=== PATIENT | male | born 1970 | race Caucasian/White ===

== ENCOUNTER 2016-12-06 12:40 | Emergency (ER) | payer SELFPAY ==
[~2016-12-06] VITALS: Ht 170.2 cm; Wt 133.9 kg
[~2016-12-06 12:40] MED LIST: ALBU8.5H4 IH; CYCL10TA9 PO; DCL250C PO; DICL1TAB PO; DIPH50CA33; DOCU-143 PO; DOXY100C2 PO; GABA300C PO; GBPN100C PO; HYDR-2854 PO; HYDR-3812 PO; HYDR10SY15 PO; HYOS0.1217 PO; LORA10TA7 PO; NAPR-243 PO; NAPR500T3 PO; NAPROXEN; ONDA-41 PO; ONDAN4ODT PO; PNT40TEC PO; PRM25T PO; SULF1TAB35 PO; SULF1TAB38; [UNRECOGNIZED DRUG - OTHER]; antihistamine PO
[2016-12-06] MEDS ORDERED: ASPIRIN 81 MG CHEW (CHILDREN'S ASA) PO ONE (12:45)
[2016-12-06] MEDS ORDERED: RX-NITROGLYCERIN 0.4 MG TAB BTL 25'S SL PRN (12:45)
--- NOTE | 2016-12-06 12:57 | ED Chest Pain ---
General Chief Complaint: Chest Pain Stated Complaint: CHEST PAIN Source: patient Exam Limitations: no limitations History of Present Illness Time seen by provider: 12:55 Initial Comments To ER ambulatory with reports of central and right-sided chest pain. This began at 930 a.m. this morning. He states that he was laying on the couch taking his morning nap when he was awakened by a sudden sharp stabbing sensation in the right side of the chest. He denies shortness of breath or any history of heart disease. Pain is been constant since 930 this morning. Presented prior Timing/Duration: 1-3 hours Severity/Quality: moderate Location: central Activities at Onset: none ASA po CUTTING AND SPLICING SUPERVISOR: No NTG SL CUTTING AND SPLICING SUPERVISOR: No Associated Symptoms: No back pain Allergies and Home Medications Allergies Coded Allergies: No Known Drug Allergies (Unverified , 06/28/15) Home Medications Cyclobenzaprine HCl 10 Mg Tablet, 10 MG PO Q8H, #15 Prescribed by: DAISY BILLINGS on 10/24/15 1756 Docusate Sodium 100 Mg Capsule, 100 MG PO BID, #60 Prescribed by: ROSEMARIE REINA on 06/30/15 1057 Gabapentin 300 Mg Capsule, 300 MG PO HS, (Reported) Hydrocodone/Acetaminophen 1 Each Tablet, 1 TAB PO Q4H PRN, #30 Prescribed by: ROSEMARIE REINA on 06/30/15 1057 Loratadine 10 Mg Tablet, 10 MG PO HS, (Reported) Naproxen 500 Mg Tablet, 500 MG PO BID, #20 Prescribed by: DAISY BILLINGS on 10/24/15 1756 Review of Systems Constitutional: see HPI, No chills EENTM: No Symptoms Reported Respiratory: No Symptoms Reported, Denies Cough, Denies Orthopnea, Denies Shortness of Air, Denies SOA With Exertion, Denies SOA at Rest Cardiovascular: See HPI, Chest Pain Gastrointestinal: See HPI Genitourinary: No Symptoms Reported Musculoskeletal: no symptoms reported Skin: no symptoms reported Psychiatric/Neurological: No Symptoms Reported Endocrine: No Symptoms Reported Past Lnymhpv-Qkyujc-Uitpnp Hx Patient Social History Recent Hopitalizations: No Immunizations Up To Date Tetanus Booster (TDap): Unknown Seasonal Allergies Seasonal Allergies: Yes Surgeries HX Surgeries: Yes Surgeries: Abdominal, Ear Surgery Respiratory Hx Respiratory Disorders: Yes (CPAP) Respiratory Disorders: Sleep Apnea Cardiovascular Hx Cardiac Disorders: No Neurological Hx Neurological Disorders: No Reproductive System Hx Reproductive Disorders: No Sexually Transmitted Disease: No HIV/AIDS: No Genitourinary Hx Genitourinary Disorders: No Gastrointestinal Hx Gastrointestinal Disorders: Yes Gastrointestinal Disorders: Abdominal Hernia Musculoskeletal Hx Musculoskeletal Disorders: Yes Musculoskeletal Disorders: Arthritis, Gout Endocrine Hx Endocrine Disorders: No HEENT HX ENT Disorders: Yes (HX OF CHRONIC EAR INFECTION-HAS HAD TUBES) HEENT Disorders: Chronic Ear Infection Loss of Vision: Denies Hearing Impairment: Hard of Hearing Cancer Hx Cancer: No Psychosocial Hx Psychiatric Problems: No Integumentary HX Skin/Integumentary Disorder: No Blood Transfusions Hx Blood Disorders: No Adverse Reaction to a Blood Tr: No Family Medical History Significant Family History: No Pertinent Family Hx Physical Exam Vital Signs Vital Sign - Last 12Hours 12/06/16 12:54 Temp 98.3 Pulse 69 Resp 29 B/P (MAP) 146/99 Pulse Ox 97 O2 Delivery Room Air Capillary Refill : General Appearance: No Apparent Distress, WD/WN, Obese HEENT: PERRL/EOMI, TMs Normal Neck: Full Range of Motion, Normal Inspection Respiratory: No Accessory Muscle Use, No Respiratory Distress Cardiovascular: Regular Rate, Rhythm, Normal Peripheral Pulses Gastrointestinal: Non Tender, Soft Extremity: Normal Capillary Refill, Normal Inspection Neurologic/Psychiatric: Alert, Oriented x3, No Motor/Sensory Deficits Skin: Normal Color, Warm/Dry, Other (there are erythematous changes to the anterior abdominal wall.) Progress/Results/Core Measures Results/Orders Lab Results Laboratory Tests Test 12/06/16 12:53 Range/Units White Blood Count 6.5 4.3-11.0 10^3/uL Red Blood Count 4.88 4.35-5.85 10^6/uL Hemoglobin 15.0 13.3-17.7 G/DL Hematocrit 45 40-54 % Mean Corpuscular Volume 91 80-99 FL Mean Corpuscular Hemoglobin 31 25-34 PG Mean Corpuscular Hemoglobin Concent 34 32-36 G/DL Red Cell Distribution Width 12.5 10.0-14.5 % Platelet Count 197 130-400 10^3/uL Mean Platelet Volume 10.8 H 7.4-10.4 FL Neutrophils (%) (Auto) 66 42-75 % Lymphocytes (%) (Auto) 22 12-44 % Monocytes (%) (Auto) 10 0-12 % Eosinophils (%) (Auto) 2 0-10 % Basophils (%) (Auto) 1 0-10 % Neutrophils # (Auto) 4.3 1.8-7.8 X 10^3 Lymphocytes # (Auto) 1.4 1.0-4.0 X 10^3 Monocytes # (Auto) 0.7 0.0-1.0 X 10^3 Eosinophils # (Auto) 0.1 0.0-0.3 10^3/uL Basophils # (Auto) 0.0 0.0-0.1 10^3/uL Prothrombin Time 11.7 L 12.2-14.7 SEC INR Comment 0.9 0.8-1.4 Activated Partial Thromboplast Time 29 24-35 SEC Sodium Level 140 135-145 MMOL/L Potassium Level 4.2 3.6-5.0 MMOL/L Chloride Level 103 98-107 MMOL/L Carbon Dioxide Level 29 21-32 MMOL/L Anion Gap 8 5-14 MMOL/L Blood Urea Nitrogen 14 7-18 MG/DL Creatinine 0.94 0.60-1.30 MG/DL Estimat Glomerular Filtration Rate > 60 BUN/Creatinine Ratio 15 0-20 Glucose Level 131 H 70-105 MG/DL Calcium Level 9.8 8.5-10.1 MG/DL Magnesium Level 2.2 1.8-2.4 MG/DL Total Bilirubin 1.2 H 0.1-1.0 MG/DL Aspartate Amino Transf (AST/SGOT) 27 5-34 U/L Alanine Aminotransferase (ALT/SGPT) 36 0-55 U/L Alkaline Phosphatase 59 40-136 U/L Myoglobin 53.2 10.0-92.0 NG/ML Troponin I < 0.30 <0.30 NG/ML Total Protein 7.7 6.4-8.2 GM/DL Albumin 4.0 3.2-4.5 GM/DL My Orders Orders - RAMAN ALLEN MANAGER ELIGIBILITY Cbc With Automated Diff (12/06/16 12:45) Magnesium (12/06/16 12:45) Ekg Tracing (12/06/16 12:45) Cardiac Profile 1 (12/06/16 12:45) Comprehensive Metabolic Panel (12/06/16 12:45) Myoglobin Serum (12/06/16 12:45) Protime With Inr (12/06/16 12:45) Partial Thromboplastin Time (12/06/16 12:45) O2 (12/06/16 12:45) Monitor-Rhythm Ecg Trace Only (12/06/16 12:45) Lipid Panel (12/07/16 06:00) Aspirin Chewable Tablet (Baby Aspirin Ch (12/06/16 12:45) Rx-Nitroglycerin Sl Tabs (Rx-Nitrostat S (12/06/16 12:45) Saline Lock/Iv-Start (12/06/16 12:45) Chest Pa/Lat (2 View) (12/06/16 12:53) Vital Signs/I&O Vital Sign - Last 12Hours 12/06/16 12/06/16 12:54 12:54 Temp 98.3 Pulse 69 Resp 29 B/P (MAP) 146/99 Pulse Ox 97 O2 Delivery Room Air Room Air Departure Impression Impression: Primary Impression: Pleuritic chest pain Disposition: 01 HOME, SELF-CARE Condition: Stable Departure-Patient Inst. Decision time for Depature: 13:36 Referrals: [facility] (PCP/Family) Primary Care Physician Patient Instructions: Chest Pain That Is Not Caused by the Heart (DC) Add. Discharge Instructions: 1. Tylenol and Motrin for pain 2. Return to ER for any concerns 3. All discharge instructions reviewed with patient and/or family. Voiced understanding. RAMAN ALLEN APRN Dec 06, 2016 12:57
[2016-12-06 13:00] LABS: BASOPHILS % (AUTO) 1 % (0-10); EOSINOPHILS # (AUTO) 0.1 10^3/uL (0.0-0.3); EOSINOPHILS % (AUTO) 2 % (0-10); LYMPHOCYTES # (AUTO) 1.4 X 10^3 (1.0-4.0); LYMPHOCYTES % (AUTO) 22 % (12-44); MEAN CORPUSCULAR HEMOGLOBIN 31 PG (25-34); MEAN CORPUSCULAR HGB CONC 34 G/DL (32-36); MEAN CORPUSCULAR VOLUME 91 FL (80-99); MEAN PLATELET VOLUME 10.8 FL (7.4-10.4); MONOCYTES # (AUTO) 0.7 X 10^3 (0.0-1.0); MONOCYTES % (AUTO) 10 % (0-12); NEUTROPHILS # (AUTO) 4.3 X 10^3 (1.8-7.8); NEUTROPHILS % (AUTO) 66 % (42-75); PLATELET COUNT 197 10^3/uL (130-400); RED BLOOD COUNT 4.88 10^6/uL (4.35-5.85); RED CELL DISTRIBUTION WIDTH 12.5 % (10.0-14.5); WHITE BLOOD COUNT 6.5 10^3/uL (4.3-11.0)
[2016-12-06 13:19] LABS: ALANINE AMINOTRANSFERASE 36 U/L (0-55); ANION GAP 8 MMOL/L (5-14); ASPARTATE AMINO TRANSFERASE 27 U/L (5-34); BILIRUBIN,TOTAL 1.2 MG/DL (0.1-1.0); BLOOD UREA NITROGEN 14 MG/DL (7-18); BUN/CREATININE RATIO 15 (0-20); CALCIUM 9.8 MG/DL (8.5-10.1); CARBON DIOXIDE 29 MMOL/L (21-32); CHLORIDE 103 MMOL/L (98-107); CREATININE SERUM 0.94 MG/DL (0.60-1.30); GFR ESTIMATED > 60; GLUCOSE 131 MG/DL (70-105); HEMOLYSIS 9 (-100-29); LIPEMIA 5 (-100-49); MAGNESIUM 2.2 MG/DL (1.8-2.4); POTASSIUM 4.2 MMOL/L (3.6-5.0); SODIUM 140 MMOL/L (135-145); TOTAL PROTEIN 7.7 GM/DL (6.4-8.2)
[2016-12-06 13:20] LABS: INR 0.9 (0.8-1.4); PROTHROMBIN TIME PATIENT 11.7 SEC (12.2-14.7)
[2016-12-06 13:26] LABS: MYOGLOBIN SERUM 53.2 NG/ML (10.0-92.0)
--- NOTE | 2016-12-06 13:27 | Diagnostic Imaging Report ---
PA and lateral views of chest. INDICATION: Chest pain. FINDINGS: The lungs demonstrate minimal left basilar atelectasis. The heart size is normal. No effusion or pneumothorax. The mediastinum and sobia appear unremarkable. IMPRESSION: Minimal left basilar atelectasis. Dictated by: Dictated on workstation # [id number]
[2016-12-06 13:48] VITALS: BP 146/99
--- OUTSIDE RECORDS SUMMARY | 2016-12-10 13:46 | XMS REPORT ---
Author Author ANA RIVER Organization [employer] Address Unknown Phone Unavailable Care Team Providers Care Occupational Safety And Health Manager Name Role Phone ANA RIVER CP Unavailable Allergies, Adverse Reactions, Alerts Substance Reaction Event Type N.K.D.A. Info Not Available Non Drug Allergy Problems Problem Type Condition Code Onset Dates Condition Status Problem Unspecified hereditary and idiopathic peripheral neuropathy 356.9 Active Problem Unspecified tinnitus 388.30 Active Problem Abdominal pain, epigastric 789.06 Active Assessment Sinusitis, unspecified chronicity, unspecified location J32.9 Active Problem Pain in joint, site unspecified 719.40 Active Problem Acute sinusitis, unspecified 461.9 Active Problem Dysfunction of Eustachian tube 381.81 Active Problem Acute bronchitis 466.0 Active Problem Impacted cerumen 380.4 Active Problem Acute pharyngitis 462 Active Problem Other abnormal glucose 790.29 Active Medications Medication Code System Code Instructions Start Date End Date Status Dosage Levaquin [facility] [address]-32 500 MG Orally Once a day Mar 14, 2016 Mar 24, 2016 1 tablet Cetirizine HCl [facility] [address]-81 10 mg Orally Once a day January 04, 2016 Apr 03, 2016 1 tablet Naproxen [facility] [address]-80 500 MG Orally every 12 hrs 1 tablet as needed Procedures Procedure Coding System Code Date Office Visit, Est Pt., Level 3 CPT-4 64476 Mar 14, 2016 Vital Signs Date/Time: Mar 14, 2016 Cardiac Monitoring Heart Rate 76 bpm Weight 282 lbs Height 67 in BMI 44.16 Index Blood Pressure Diastolic 80 mmHg Blood Pressure Systolic 120 mmHg Results No Known Results Summary Purpose [employer] Submission
--- OUTSIDE RECORDS SUMMARY | 2016-12-10 13:46 | XMS REPORT | Continuity of Care Document ---
Author Author [facility] Address Unknown Phone Unavailable Allergies Active Description Code Type Severity Reaction Onset Reported/Identified Relationship to Patient Clinical Status Yes NKANo Known Allergies NKA Miscellaneous Allergy Mild N/A 10/01/2009 Yes No Known Drug Allergies [id number] Drug Allergy Unknown N/ A 06/28/2015 Medications Problems Date Dx Coded Attending Type Code Diagnosis Diagnosed By 06/24/2009 465.9 UPPER RESPIRATORY INFECTION 06/24/2009 465.9 UPPER RESPIRATORY INFECTION 06/24/2009 465.9 UPPER RESPIRATORY INFECTION 06/24/2009 465.9 UPPER RESPIRATORY INFECTION 06/24/2009 465.9 UPPER RESPIRATORY INFECTION 06/24/2009 PARAMJIT FRY DO 465.9 UPPER RESPIRATORY INFECTION 06/24/2009 JSOE CASTRO APRN 465.9 UPPER RESPIRATORY INFECTION 06/24/2009 LUIS TERRY DDS 465.9 UPPER RESPIRATORY INFECTION 06/24/2009 CHACHO CROWE MD 465.9 UPPER RESPIRATORY INFECTION 06/24/2009 VERONICA LOZANO APRN 465.9 UPPER RESPIRATORY INFECTION 07/26/2009 382.00 OTITIS MEDIA ACUTE WITHOUT SPONTANEOUS RUPTURE EARDRUM 07/26/2009 382.00 OTITIS MEDIA ACUTE WITHOUT SPONTANEOUS RUPTURE EARDRUM 07/26/2009 382.00 OTITIS MEDIA ACUTE WITHOUT SPONTANEOUS RUPTURE EARDRUM 07/26/2009 382.00 OTITIS MEDIA ACUTE WITHOUT SPONTANEOUS RUPTURE EARDRUM 07/26/2009 382.00 OTITIS MEDIA ACUTE WITHOUT SPONTANEOUS RUPTURE EARDRUM 07/26/2009 PARAMJIT FRY DO 382.00 OTITIS MEDIA ACUTE WITHOUT SPONTANEOUS RUPTURE EARDRUM 07/26/2009 JOSE CASTRO APRN 382.00 OTITIS MEDIA ACUTE WITHOUT SPONTANEOUS RUPTURE EARDRUM 07/26/2009 LUIS TERRY DDS 382.00 OTITIS MEDIA ACUTE WITHOUT SPONTANEOUS RUPTURE EARDRUM 07/26/2009 CHACHO CROWE MD 382.00 OTITIS MEDIA ACUTE WITHOUT SPONTANEOUS RUPTURE EARDRUM 07/26/2009 VERONICA LOZANO APRN 382.00 OTITIS MEDIA ACUTE WITHOUT SPONTANEOUS RUPTURE EARDRUM 09/13/2009 327.23 SLEEP APNEA (ADULT) (PEDIATRIC) 09/13/2009 535.50 GASTRITIS UNSPEC 09/13/2009 327.23 SLEEP APNEA (ADULT) (PEDIATRIC) 09/13/2009 535.50 GASTRITIS UNSPEC 09/13/2009 327.23 SLEEP APNEA (ADULT) (PEDIATRIC) 09/13/2009 535.50 GASTRITIS UNSPEC 09/13/2009 327.23 SLEEP APNEA (ADULT) (PEDIATRIC) 09/13/2009 535.50 GASTRITIS UNSPEC 09/13/2009 327.23 SLEEP APNEA (ADULT) (PEDIATRIC) 09/13/2009 535.50 GASTRITIS UNSPEC 09/13/2009 PARAMJIT FRY DO 327.23 SLEEP APNEA (ADULT) (PEDIATRIC) 09/13/2009 PARAMJIT FRY DO 535.50 GASTRITIS UNSPEC 09/13/2009 JOSE CASTRO APRN 327.23 SLEEP APNEA (ADULT) (PEDIATRIC) 09/13/2009 JOSE CASTRO APRN 535.50 GASTRITIS UNSPEC 09/13/2009 LUIS TERRY DDS 327.23 SLEEP APNEA (ADULT) (PEDIATRIC) 09/13/2009 LUIS TERRY DDS 535.50 GASTRITIS UNSPEC 09/13/2009 CHACHO CROWE MD 327.23 SLEEP APNEA (ADULT) (PEDIATRIC) 09/13/2009 CHACHO CROWE MD 535.50 GASTRITIS UNSPEC 09/13/2009 VERONICA LOZANO APRN R 327.23 SLEEP APNEA (ADULT) (PEDIATRIC) 09/13/2009 VERONICA LOZANO APRN R 535.50 GASTRITIS UNSPEC 09/30/2009 682.9 CELLULITIS AND ABSCESS OF UNSPECIFIED SITES 09/30/2009 682.9 CELLULITIS AND ABSCESS OF UNSPECIFIED SITES 09/30/2009 682.9 CELLULITIS AND ABSCESS OF UNSPECIFIED SITES 09/30/2009 682.9 CELLULITIS AND ABSCESS OF UNSPECIFIED SITES 09/30/2009 682.9 CELLULITIS AND ABSCESS OF UNSPECIFIED SITES 09/30/2009 PARAMJIT FRY DO 682.9 CELLULITIS AND ABSCESS OF UNSPECIFIED SITES 09/30/2009 JOSE CASTRO APRN 682.9 CELLULITIS AND ABSCESS OF UNSPECIFIED SITES 09/30/2009 LUIS TERRY DDS 682.9 CELLULITIS AND ABSCESS OF UNSPECIFIED SITES 09/30/2009 CHACHO CROWE MD 682.9 CELLULITIS AND ABSCESS OF UNSPECIFIED SITES 09/30/2009 VERONICA LOZANO APRN 682.9 CELLULITIS AND ABSCESS OF UNSPECIFIED SITES 05/26/2010 300.00 ANXIETY UNSPEC 05/26/2010 401.1 HYPERTENSION, BENIGN ESSENTIAL 05/26/2010 300.00 ANXIETY UNSPEC 05/26/2010 401.1 HYPERTENSION, BENIGN ESSENTIAL 05/26/2010 300.00 ANXIETY UNSPEC 05/26/2010 401.1 HYPERTENSION, BENIGN ESSENTIAL 05/26/2010 300.00 ANXIETY UNSPEC 05/26/2010 401.1 HYPERTENSION, BENIGN ESSENTIAL 05/26/2010 300.00 ANXIETY UNSPEC 05/26/2010 401.1 HYPERTENSION, BENIGN ESSENTIAL 05/26/2010 FRY DO, PARAMJIT K 300.00 ANXIETY UNSPEC 05/26/2010 FRY DO, PARAMJIT K 401.1 HYPERTENSION, BENIGN ESSENTIAL 05/26/2010 JOSE CASTRO APRN 300.00 ANXIETY UNSPEC 05/26/2010 JOSE CASTRO APRN 401.1 HYPERTENSION, BENIGN ESSENTIAL 05/26/2010 LUIS TERRY DDS 300.00 ANXIETY UNSPEC 05/26/2010 HARRISON HAWKINS, LUIS 401.1 HYPERTENSION, BENIGN ESSENTIAL 05/26/2010 CHACHO CROWE MD 300.00 ANXIETY UNSPEC 05/26/2010 CHACHO CROWE MD 401.1 HYPERTENSION, BENIGN ESSENTIAL 05/26/2010 VERONICA LOZANO APRN R 300.00 ANXIETY UNSPEC 05/26/2010 VERONICA LOZANO APRN R 401.1 HYPERTENSION, BENIGN ESSENTIAL 06/26/2010 789.01 ABDOMINAL PAIN RIGHT UPPER QUADRANT 06/26/2010 789.01 ABDOMINAL PAIN RIGHT UPPER QUADRANT 06/26/2010 789.01 ABDOMINAL PAIN RIGHT UPPER QUADRANT 06/26/2010 789.01 ABDOMINAL PAIN RIGHT UPPER QUADRANT 06/26/2010 789.01 ABDOMINAL PAIN RIGHT UPPER QUADRANT 06/26/2010 GALDINO FRY DOA K 789.01 ABDOMINAL PAIN RIGHT UPPER QUADRANT 06/26/2010 JOSE CASTRO APRN 789.01 ABDOMINAL PAIN RIGHT UPPER QUADRANT 06/26/2010 LUIS TERRY DDS 789.01 ABDOMINAL PAIN RIGHT UPPER QUADRANT 06/26/2010 CHACHO CROWE MD 789.01 ABDOMINAL PAIN RIGHT UPPER QUADRANT 06/26/2010 VERONICA LOZANO APRN R 789.01 ABDOMINAL PAIN RIGHT UPPER QUADRANT 12/25/2010 381.01 OTITIS MEDIA, ACUTE SEROUS 12/25/2010 386.10 VERTIGO, PERIPHERAL UNSPECIFIED 12/25/2010 381.01 OTITIS MEDIA, ACUTE SEROUS 12/25/2010 386.10 VERTIGO, PERIPHERAL UNSPECIFIED 12/25/2010 381.01 OTITIS MEDIA, ACUTE SEROUS 12/25/2010 386.10 VERTIGO, PERIPHERAL UNSPECIFIED 12/25/2010 381.01 OTITIS MEDIA, ACUTE SEROUS 12/25/2010 386.10 VERTIGO, PERIPHERAL UNSPECIFIED 12/25/2010 381.01 OTITIS MEDIA, ACUTE SEROUS 12/25/2010 386.10 VERTIGO, PERIPHERAL UNSPECIFIED 12/25/2010 FRY PARAMJIT LINCOLN K 381.01 OTITIS MEDIA, ACUTE SEROUS 12/25/2010 FRY GALDINO LINCOLNA K 386.10 VERTIGO, PERIPHERAL UNSPECIFIED 12/25/2010 JOSE CASTRO APRN 381.01 OTITIS MEDIA, ACUTE SEROUS 12/25/2010 JOSE CASTRO APRN 386.10 VERTIGO, PERIPHERAL UNSPECIFIED 12/25/2010 HARRISON FALCONS, LUIS 381.01 OTITIS MEDIA, ACUTE SEROUS 12/25/2010 TERRY TERRIES, LUIS 386.10 VERTIGO, PERIPHERAL UNSPECIFIED 12/25/2010 CHACHO CROWE MD 381.01 OTITIS MEDIA, ACUTE SEROUS 12/25/2010 CHACHO CROWE MD 386.10 VERTIGO, PERIPHERAL UNSPECIFIED 12/25/2010 BLAKE VELASCO VERONICA R 381.01 OTITIS MEDIA, ACUTE SEROUS 12/25/2010 BLAKE VELASCO, VERONICA R 386.10 VERTIGO, PERIPHERAL UNSPECIFIED 09/07/2011 466.0 BRONCHITIS, ACUTE 09/07/2011 466.0 BRONCHITIS, ACUTE 09/07/2011 466.0 BRONCHITIS, ACUTE 09/07/2011 466.0 BRONCHITIS, ACUTE 09/07/2011 466.0 BRONCHITIS, ACUTE 09/07/2011 PARAMJIT FRY DO K 466.0 BRONCHITIS, ACUTE 09/07/2011 JOSE CASTRO APRN 466.0 BRONCHITIS, ACUTE 09/07/2011 LUIS TERRY DDS 466.0 BRONCHITIS, ACUTE 09/07/2011 CHACHO CROWE MD 466.0 BRONCHITIS, ACUTE 09/07/2011 BLAKE VELASCO VERONICA R 466.0 BRONCHITIS, ACUTE 09/13/2011 Ot 466.0 ACUTE BRONCHITIS 09/13/2011 Ot 786.2 COUGH 10/10/2011 Ot 789.01 ABDOMINAL PAIN, RIGHT UPPER QUADRANT 01/30/2012 Ot 327.23 OBSTRUCTIVE SLEEP APNEA (ADULT) (PEDIATR 04/10/2012 380.4 CERUMEN IMPACTION 04/10/2012 388.30 TINNITUS UNSPECIFIED 04/10/2012 380.4 CERUMEN IMPACTION 04/10/2012 388.30 TINNITUS UNSPECIFIED 04/10/2012 380.4 CERUMEN IMPACTION 04/10/2012 388.30 TINNITUS UNSPECIFIED 04/10/2012 380.4 CERUMEN IMPACTION 04/10/2012 388.30 TINNITUS UNSPECIFIED 04/10/2012 380.4 CERUMEN IMPACTION 04/10/2012 388.30 TINNITUS UNSPECIFIED 04/10/2012 PARAMJIT FRY DO 380.4 CERUMEN IMPACTION 04/10/2012 PARAMJIT FRY DO 388.30 TINNITUS UNSPECIFIED 04/10/2012 JOSE CASTRO APRN 380.4 CERUMEN IMPACTION 04/10/2012 JOSE CASTRO APRN 388.30 TINNITUS UNSPECIFIED 04/10/2012 LUIS TERRY DDS 380.4 CERUMEN IMPACTION 04/10/2012 LUIS TERRY DDS 388.30 TINNITUS UNSPECIFIED 04/10/2012 CHACHO CROWE MD 380.4 CERUMEN IMPACTION 04/10/2012 CHACHO CROWE MD 388.30 TINNITUS UNSPECIFIED 04/10/2012 VERONICA LOZANO APRN 380.4 CERUMEN IMPACTION 04/10/2012 VERONICA LOZANO APRN 388.30 TINNITUS UNSPECIFIED 07/18/2012 381.81 EUSTACHIAN TUBE DYSFUNCTION 07/18/2012 719.40 ARTHRAIGIA UNSPEC 07/18/2012 381.81 EUSTACHIAN TUBE DYSFUNCTION 07/18/2012 719.40 ARTHRAIGIA UNSPEC 07/18/2012 381.81 EUSTACHIAN TUBE DYSFUNCTION 07/18/2012 719.40 ARTHRAIGIA UNSPEC 07/18/2012 381.81 EUSTACHIAN TUBE DYSFUNCTION 07/18/2012 719.40 ARTHRAIGIA UNSPEC 07/18/2012 381.81 EUSTACHIAN TUBE DYSFUNCTION 07/18/2012 719.40 ARTHRAIGIA UNSPEC 07/18/2012 PARAMJIT FRY DO 381.81 EUSTACHIAN TUBE DYSFUNCTION 07/18/2012 PARAMJIT FRY DO K 719.40 ARTHRAIGIA UNSPEC 07/18/2012 JOSE CASTRO APRN 381.81 EUSTACHIAN TUBE DYSFUNCTION 07/18/2012 JOSE CASTRO APRN 719.40 ARTHRAIGIA UNSPEC 07/18/2012 HARRISON FALCONS, LUIS 381.81 EUSTACHIAN TUBE DYSFUNCTION 07/18/2012 HARRISON FALCONS, LUIS 719.40 ARTHRAIGIA UNSPEC 07/18/2012 CHACHO CROWE MD 381.81 EUSTACHIAN TUBE DYSFUNCTION 07/18/2012 CHACHO CROWE MD 719.40 ARTHRAIGIA UNSPEC 07/18/2012 VERONICA LOZANO APRN R 381.81 EUSTACHIAN TUBE DYSFUNCTION 07/18/2012 VERONICA LOZANO APRN 719.40 ARTHRAIGIA UNSPEC 09/05/2012 790.29 HYPERGLYCEMIA 09/05/2012 790.29 HYPERGLYCEMIA 09/05/2012 790.29 HYPERGLYCEMIA 09/05/2012 PARAMJIT FRY DO K 790.29 HYPERGLYCEMIA 09/05/2012 JOSE CASTRO APRN 790.29 HYPERGLYCEMIA 09/05/2012 HARRISON HAWKINS, LUIS 790.29 HYPERGLYCEMIA 09/05/2012 CHACHO CROWE MD 790.29 HYPERGLYCEMIA 09/05/2012 VERONICA LOZANO APRN R 790.29 HYPERGLYCEMIA 10/13/2012 356.9 NEUROPATHY 10/13/2012 356.9 NEUROPATHY 10/13/2012 PARAMJIT FRY DO K 356.9 NEUROPATHY 10/13/2012 JOSE CASTRO APRN 356.9 NEUROPATHY 10/13/2012 HARRISON HAWKINS, LUIS 356.9 NEUROPATHY 10/13/2012 CHACHO CROWE MD 356.9 NEUROPATHY 10/13/2012 VERONICA LOZANO APRN R 356.9 NEUROPATHY 01/15/2013 JANET CALLOWAY MD Ot 923.20 CONTUSION OF HAND(S) 01/15/2013 JANET CALLOWAY MD Ot 959.4 HAND INJURY NOS 01/15/2013 JANET CALLOWAY MD Ot E000.8 OTHER EXTERNAL CAUSE STATUS 01/15/2013 JANET CALLOWAY MD Ot E849.0 ACCIDENT IN HOME 01/15/2013 JANET CALLOWAY MD Ot E888.1 FALL STRIKING OBJECT NEC 02/02/2013 RIZWAN CHEEMA, ARIE Mancia Ot 530.11 REFLUX ESOPHAGITIS 04/08/2013 DAISY BILLINGS DO Ot 571.8 CHRONIC LIVER DIS NEC 04/08/2013 DAISY BILLINGS DO Ot 789.01 ABDOMINAL PAIN, RIGHT UPPER QUADRANT 04/10/2013 RIZWAN CHEEMA, ARIE Mancia Ot 571.8 CHRONIC LIVER DIS NEC 04/10/2013 RIZWAN CHEEMA, ARIE Mancia Ot 789.02 ABDOMINAL PAIN, LEFT UPPER QUADRANT 04/13/2013 PARAMJIT FRY DO 789.06 ABDOMINAL PAIN EPIGASTRIC 04/13/2013 JOSE CASTRO APRN 789.06 ABDOMINAL PAIN EPIGASTRIC 04/13/2013 LUIS TERRY DDS 789.06 ABDOMINAL PAIN EPIGASTRIC 04/13/2013 CHACHO CROWE MD 789.06 ABDOMINAL PAIN EPIGASTRIC 04/13/2013 BLAKE VELASCO, VERONICA Muñoz 789.06 ABDOMINAL PAIN EPIGASTRIC 02/25/2014 CHACHO CROWE MD 461.9 SINUSITIS ACUTE 02/25/2014 CHACHO CROWE MD 46Leodan ACUTE PHARYNGITIS 02/25/2014 VERONICA LOZANO APRN R 461.9 SINUSITIS ACUTE 02/25/2014 VERONICA LOZANO APRN 462 ACUTE PHARYNGITIS 09/21/2014 VERONICA LOZANO APRN 388.70 OTALGIA UNSPECIFIED 06/20/2015 Ot 789.01 06/20/2015 Ot 789.01 06/20/2015 LAZARA NARANJO Ot 789.01 06/20/2015 RAMAN ALLEN APRN Ot K42.9 UMBILICAL HERNIA WITHOUT OBSTRUCTION OR 06/22/2015 Ot 789.01 06/22/2015 Ot 789.01 06/22/2015 LAZARA NARANJO Ot 789.01 07/08/2015 ROSEMARIE REINA DO Ot K42.9 10/24/2015 DAISY BILLINGS DO Ot 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, CERVICOTHORACIC REGIO 10/24/2015 DAISY BILLINGS DO Ot M47.812 SPONDYLOSIS W/O MYELOPATHY OR RADICULOPA 10/24/2015 DAISY BILLINGS DO Ot R93.3 ABNORMAL FINDINGS ON DX IMAGING OF PRT D 10/24/2015 DAISY BILLINGS DO Ot S16.1XXA STRAIN OF MUSCLE, FASCIA AND TENDON AT N 10/24/2015 DAISY BILLINGS DO Ot S29.012A STRAIN OF MUSCLE AND TENDON OF BACK WALL 10/24/2015 DAISY BILLINGS DO Ot S39.012A STRAIN OF MUSCLE, FASCIA AND TENDON OF L 10/24/2015 DAISY BILLINGS DO Ot V53.5XXA TREATING PLANT PUMPER OF PK-UP/VAN INJ PK-UP TRUCK, PK- 10/24/2015 DAISY BILLINGS DO Ot Y92.414 LOCAL RESIDENTIAL OR BUSINESS STREET 10/24/2015 DAISY BILLINGS DO Ot Y99.8 OTHER EXTERNAL CAUSE STATUS 10/25/2015 DAISY BILLINGS DO Ot 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, CERVICOTHORACIC REGIO 10/25/2015 DAISY BILLINGS DO Ot M47.812 SPONDYLOSIS W/O MYELOPATHY OR RADICULOPA 10/25/2015 DAISY BILLINGS DO Ot R93.3 ABNORMAL FINDINGS ON DX IMAGING OF PRT D 10/25/2015 DAISY BILLINGS DO Ot S16.1XXA STRAIN OF MUSCLE, FASCIA AND TENDON AT N 10/25/2015 DAISY BILLINGS DO Ot S29.012A STRAIN OF MUSCLE AND TENDON OF BACK WALL 10/25/2015 DAISY BILLINGS DO Ot S39.012A STRAIN OF MUSCLE, FASCIA AND TENDON OF L 10/25/2015 DAISY BILLINGS DO Ot V53.5XXA TREATING PLANT PUMPER OF PK-UP/VAN INJ PK-UP TRUCK, PK- 10/25/2015 DAISY BILLINGS DO Ot Y92.[address] OR BUSINESS [address]REET 10/25/2015 DAISY BILLINGS DO Ot Y99.8 OTHER EXTERNAL CAUSE STATUS 11/07/2015 Ot 789.01 ABDOMINAL PAIN, RIGHT UPPER QUADRANT 11/07/2015 Ot 789.01 ABDOMINAL PAIN, RIGHT UPPER QUADRANT 11/07/2015 LAZARA NARANJO Ot 789.01 ABDOMINAL PAIN, RIGHT UPPER QUADRANT 11/07/2015 ROSEMARIE REINA DO Ot K42.9 UMBILICAL HERNIA WITHOUT OBSTRUCTION OR 11/07/2015 ROSEMARIE REINA DO Ot K42.9 UMBILICAL HERNIA WITHOUT OBSTRUCTION OR 11/07/2015 ROSEMARIE REINA DO Ot Z01.812 ENCOUNTER FOR PREPROCEDURAL LABORATORY E 11/07/2015 ROSEMARIE REINA DO Ot Z11.2 ENCOUNTER FOR SCREENING FOR OTHER BACTER 01/03/2016 Ot 789.01 ABDOMINAL PAIN, RIGHT UPPER QUADRANT 01/03/2016 LAZARA NARANJO RESISTOR WINDER Ot 789.01 ABDOMINAL PAIN, RIGHT UPPER QUADRANT 01/03/2016 ROSEMARIE REINA DO Ot K42.9 UMBILICAL HERNIA WITHOUT OBSTRUCTION OR 01/03/2016 REINA ROSEMARIE LINCOLN Ot K42.9 UMBILICAL HERNIA WITHOUT OBSTRUCTION OR 01/03/2016 ROSEMARIE REINA DO Ot Z01.812 ENCOUNTER FOR PREPROCEDURAL LABORATORY E 01/03/2016 ROSEAMRIE REINA DO Ot Z11.2 ENCOUNTER FOR SCREENING FOR OTHER BACTER 01/03/2016 RAMAN ALLEN CATTLE MANAGER Ot H20.00 UNSPECIFIED ACUTE AND SUBACUTE IRIDOCYCL 01/04/2016 RAMAN ALLEN CATTLE MANAGER Ot H20.00 UNSPECIFIED ACUTE AND SUBACUTE IRIDOCYCL 01/05/2016 RAMAN ALLEN CATTLE MANAGER Ot H20.00 UNSPECIFIED ACUTE AND SUBACUTE IRIDOCYCL 01/09/2016 ARMAN ALLEN CATTLE MANAGER Ot H20.00 UNSPECIFIED ACUTE AND SUBACUTE IRIDOCYCL 02/29/2016 Ot 789.01 ABDOMINAL PAIN, RIGHT UPPER QUADRANT 02/29/2016 LAZARA NARANJO RESISTOR WINDER Ot 789.01 ABDOMINAL PAIN, RIGHT UPPER QUADRANT 02/29/2016 ROSEMARIE REINA DO Ot K42.9 UMBILICAL HERNIA WITHOUT OBSTRUCTION OR 02/29/2016 REINA ROSEMARIE LINCOLN Ot K42.9 UMBILICAL HERNIA WITHOUT OBSTRUCTION OR 02/29/2016 ROSEMARIE REINA DO Ot Z01.812 ENCOUNTER FOR PREPROCEDURAL LABORATORY E 02/29/2016 ROSEMARIE REINA DO Ot Z11.2 ENCOUNTER FOR SCREENING FOR OTHER BACTER 02/29/2016 ROSEMARIE REINA DO Ot K42.9 UMBILICAL HERNIA WITHOUT OBSTRUCTION OR 02/29/2016 REINA ROSEMARIE LINCOLN Ot Z01.812 ENCOUNTER FOR PREPROCEDURAL LABORATORY E 02/29/2016 ROSEMARIE REINA DO Ot Z11.2 ENCOUNTER FOR SCREENING FOR OTHER BACTER 02/29/2016 ROSEMARIE REINA DO Ot K42.9 UMBILICAL HERNIA WITHOUT OBSTRUCTION OR Procedures Code Description [place] [address] ROUTINE VENIPUNCTURE 08/05/2012 36902 CBC 08/05/2012 69488 LIPID PANEL 08/05 66820 CMP 08/05/2012 [id number] GFR CALC (RESULT ONLY) 08/05/2012 91646 TSH 08/05/2012 68391 RA FACTOR 2012 63065 ROUTINE VENIPUNCTURE 01/30/2013 63284 CBC 01/30/2013 19756 CMP 01/30/2013 3882203 GFR CALC (RESULT ONLY) 01/30/2013 Blake Escobar 04/13/2013 Results Test Result Range Complete blood count (CBC) with automated white blood cell (WBC) differential - 12/06/16 12:53 Blood leukocytes automated count (number/volume) 6.5 10*3/ uL 4.3-11.0 Blood erythrocytes automated count (number/volume) 4.88 10*6 /uL 4.35-5.85 Venous blood hemoglobin measurement (mass/volume) 15.0 g/dL 13.3-17.7 Blood hematocrit (volume fraction) 45 % 40-54 Automated erythrocyte mean corpuscular volume 91 [foz_us] 80-99 Automated erythrocyte mean corpuscular hemoglobin (mass per erythrocyte) 31 pg 25-34 Automated erythrocyte mean corpuscular hemoglobin concentration measurement ( mass/volume) 34 g/dL 32-36 Automated erythrocyte distribution width ratio 12.5 % 10.0-14.5 Automated blood platelet count (count/volume) 197 10*3/uL 130-400 Automated blood platelet mean volume measurement 10.8 [foz_ us] 7.4-10.4 Automated blood neutrophils/100 leukocytes 66 % 42-75 Automated blood lymphocytes/100 leukocytes 22 % 12-44 Blood monocytes/100 leukocytes 10 % 0-12 Automated blood eosinophils/100 leukocytes 2 % 0-10 Automated blood basophils/100 leukocytes 1 % 0-10 Blood neutrophils automated count (number/volume) 4.3 10*3 1.8-7.8 Blood lymphocytes automated count (number/volume) 1.4 10*3 1.0-4.0 Blood monocytes automated count (number/volume) 0.7 10*3 0.0-1.0 Automated eosinophil count 0.1 10*3/uL 0.0-0.3 Automated blood basophil count (count/volume) 0.0 10*3/uL 0.0-0.1 Comprehensive metabolic panel - 12/06/16 12:53 Serum or plasma sodium measurement (moles/volume) 140 mmol/ L 135-145 Serum or plasma potassium measurement (moles/volume) 4.2 mmol/L 3.6-5.0 Serum or plasma chloride measurement (moles/volume) 103 mmol /L 98-107 Carbon dioxide 29 mmol/L 21-32 Serum or plasma anion gap determination (moles/volume) 8 mmol/L 5-14 Serum or plasma urea nitrogen measurement (mass/volume) 14 mg/dL 7-18 Serum or plasma creatinine measurement (mass/volume) 0.94 mg /dL 0.60-1.30 Serum or plasma urea nitrogen/creatinine mass ratio 15 0-20 Serum or plasma creatinine measurement with calculation of estimated glomerular filtration rate > NRG Serum or plasma glucose measurement (mass/volume) 131 mg/dL 70-105 Serum or plasma calcium measurement (mass/volume) 9.8 mg/dL 8.5-10.1 Serum or plasma total bilirubin measurement (mass/volume) 1.2 mg/dL 0.1-1.0 Serum or plasma alkaline phosphatase measurement (enzymatic activity/volume) 59 U/L 40-136 Serum or plasma aspartate aminotransferase measurement (enzymatic activity/ volume) 27 U/L 5-34 Serum or plasma alanine aminotransferase measurement (enzymatic activity/volume ) 36 U/L 0-55 Serum or plasma protein measurement (mass/volume) 7.7 g/dL 6.4-8.2 Serum or plasma albumin measurement (mass/volume) 4.0 g/dL 3.2-4.5 Magnesium - 12/06/16 12:53 Magnesium 2.2 mg/dL 1.8-2.4 PT panel in platelet poor plasma by coagulation assay - 12/06/16 12:53 Prothrombin time (PT) in platelet poor plasma by coagulation assay 11.7 s 12.2-14.7 INR in platelet poor plasma or blood by coagulation assay 0.9 0.8-1.4 Activated partial thromboplastin time (aPTT) in platelet poor plasma bycoagulation assay - 12/06/16 12:53 Activated partial thromboplastin time (aPTT) in platelet poor plasma bycoagulation assay 29 s 24-35 Serum or plasma troponin i.cardiac measurement (mass/volume) - 12/06/16 12:53 Serum or plasma troponin i.cardiac measurement (mass/volume) < ng/mL <0.30 Myoglobin, serum - 12/06/16 12:53 Myoglobin, serum 53.2 ng/mL 10.0-92.0 Encounters ACCT No. Visit Date/Time Discharge Status Pt. Type Provider Facility Loc./Unit Complaint [id number] 09/21/2014 18:32:00 09/21/2014 23: 59:59 CLS Outpatient VERONICA LOZANO APRN [id number] 02/25/2014 15:53:00 02/25/2014 23: 59:59 CLS Outpatient CHACHO CROWE MD [id number] 09/23/2013 09:34:00 09/23/2013 23: 59:59 CLS Outpatient LUIS TERRY DDS [id number] 04/24/2013 12:24:00 04/24/2013 23: 59:59 CLS Outpatient JOSE CASTRO APRN [id number] 04/13/2013 15:45:00 04/13/2013 23: 59:59 CLS Outpatient PARAMJIT FRY DO [id number] 09/05/2012 15:01:00 09/05/2012 23: 59:59 CLS Outpatient [id number] 08/05/2012 09:52:00 08/05/2012 23: 59:59 CLS Outpatient [id number] 07/18/2012 14:38:00 07/18/2012 23: 59:59 CLS Outpatient [id number] 01/30/2013 12:06:00 Document Registration [id number] 01/27/2013 12:55:00 Document Registration
--- OUTSIDE RECORDS SUMMARY | 2016-12-10 13:46 | XMS REPORT | Continuity of Care Document ---
Author Author [facility] Organization [facility] Address Unknown Phone Unavailable Care Team Providers Care Automatic Machine Attendant Name Role Phone [facility] OF Insurance Providers Payer Name Policy Number Subscriber Name Relationship Self Pay Chacho Chen 01 Self / Same As Patient Advance Directives Directive Response Recorded Date Advance Directives N 02/01/13 3:35am Health Care Power of Lead Pressman N 02/01/13 3:35am Organ Donor N 02/01/13 3:35am Problems No Known Problems or Medical conditions. Social History History Response Recorded Date/Time Alcohol Use Occasionally Uses 02/01/13 3: 35am Recreational Drug Use N 02/01/13 3:35am Recent Foreign Travel N 02/01/13 3:35am Recent Infectious Disease Exposure N 3:35am Hospitalization with Isolation Contact 8:14pm Allergies, Adverse Reactions, Alerts Allergen Type Severity Reaction Last Updated NKANo Known Allergies Allergy Mild 10/01/09 Medications Medication Dose Units Route Sig Qty Days Diclofenac Sodium/Misoprostol (Diclofenac-Misoprost 50-0.2 Tb) 1 Tab PO DAILY Gabapentin (Neurontin) 200 Mg PO HS Hydroxyzine Hcl 10 Mg PO HS Loratadine 10 Mg PO HS Gabapentin (Neurontin) 100 Mg PO AM Hydroxyzine Hcl 10 Mg PO HS [antihistamine] 1 Tab PO d Dicloxacillin Sodium 1 Each PO HS Pantoprazole Sodium (Protonix) 1 Tab PO DAILY 30 Naproxen (Naprosyn) 1 Each PO BID PRN Doxycycline Hyclate 1 Each PO BID 10 Albuterol (Albuterol Sulfate Hfa) 8.5 Gm IH Q4H PRN 1 Response Recorded Date/Time Status not known Unknown Results Test Date Result Interp. Ref. Range Activated Partial Thromboplast Time July 16, 2009 1:31pm 25 SEC N 24-35 Alanine Aminotransferase (ALT/SGPT) February 01, 2013 1:00am 58 U/L N 30-65 Albumin February 01, 2013 1:00am 3.5 G/DL N 3.4-5.0 Alkaline Phosphatase February 01, 2013 1:00am 83 U/L N 50-136 Amylase Level February 01, 2013 1:00am 36 U/L N 25-115 Aspartate Amino Transf (AST/SGOT) February 01, 2013 1:00am 23 U/L N 15-37 BUN/Creatinine Ratio February 01, 2013 1:00am 11 - Basophils # (Auto) February 01, 2013 1:00am 0.0 10^3/uL N 0.0-0.1 Basophils (%) (Auto) February 01, 2013 1:00am 0 % N 0-10 Blood Urea Nitrogen February 01, 2013 1:00am 11 MG/DL N 7-18 C-Reactive Protein October 01, 2009 8:20pm 5.3 MG/DL H 0.2-0.9 Calcium Level February 01, 2013 1:00am 8.8 MG/DL N 8.5-10.1 Carbamazepine (Tegretol) Level July 16, 2009 1:31pm < 2.0 UG/ML L 4.0-12.0 Carbon Dioxide Level February 01, 2013 1:00am 31 MMOL/L N 21-32 Chloride Level February 01, 2013 1:00am 105 MMOL/L N 101-110 Creatine Kinase MB December 15, 2006 7:23pm 0.6 NG/ML N 0.0-3.6 Creatinine February 01, 2013 1:00am 1.0 MG /DL N 0.6-1.3 Eosinophils # (Auto) February 01, 2013 1:00am 0.1 10^3/uL N 0.0-0.3 Eosinophils (%) (Auto) February 01, 2013 1:00am 1 % N 0-10 Gastric Fluid Occult Blood July 16, 2009 1:30pm NEGATIVE - Glucose Level February 01, 2013 1:00am 85 MG/DL N 74-106 Hematocrit February 01, 2013 1:00am 44 % N 40-54 Hemoglobin February 01, 2013 1:00am 15.2 G /DL N 13.3-17.7 Lipase February 01, 2013 1:00am 120 U/L N 73-393 Lymphocytes # (Auto) February 01, 2013 1:00am 2.3 X 10^3 N 1.0-4.0 Lymphocytes (%) (Auto) February 01, 2013 1:00am 36 % N 12-44 Magnesium Level December 15, 2006 7:15pm 2.0 MG/DL N 1.8-2.4 Mean Corpuscular Hemoglobin February 01, 2013 1:00am 32 PG N 25-34 Mean Corpuscular Hemoglobin Concent February 01, 2013 1:00am 35 G/DL N 32-36 Mean Corpuscular Volume February 01, 2013 1:00am 92 FL N 80-99 Mean Platelet Volume February 01, 2013 1:00am 11.1 FL H 7.4-10.4 Monocytes # (Auto) February 01, 2013 1:00am 0.6 X 10^3 N 0.0-1.0 Monocytes (%) (Auto) February 01, 2013 1:00am 9 % N 0-12 Myoglobin December 15, 2006 7:15pm 35 UG/L N 10-92 Neutrophils # (Auto) February 01, 2013 1:00am 3.4 X 10^3 N 1.8-7.8 Neutrophils (%) (Auto) February 01, 2013 1:00am 54 % N 42-75 Platelet Count February 01, 2013 1:00am 205 10^3/uL N 130-400 Potassium Level February 01, 2013 1:00am 3.6 MMOL/L N 3.6-5.0 Prothromb Time International Ratio July 16, 2009 1:31pm 0.9 N 0.8-1.4 Prothrombin Time July 16, 2009 1:31pm 12.5 SEC N 12.2-14.7 Red Blood Count February 01, 2013 1:00am 4.77 10^6/uL N 4.35-5.85 Red Cell Distribution Width February 01, 2013 1:00am 12.8 % N 10.0-14.5 Sodium Level February 01, 2013 1:00am 137 MMOL/L N 135-145 Total Bilirubin February 01, 2013 1:00am 0.7 MG/DL N 0.0-1.0 Total Protein February 01, 2013 1:00am 7.2 G/DL N 6.4-8.2 Troponin I July 27, 2007 9:30pm < 0.10 NG/ML 0.00-0.10 Urine Bacteria February 01, 2013 1:00am NEGATIVE /HPF - Urine Bilirubin February 01, 2013 1:00am NEGATIVE - Urine Calcium Oxalate Crystals October 09, 2011 9:40pm FEW H - Urine Casts February 01, 2013 1:00am NONE /LPF - Urine Clarity February 01, 2013 1:00am CLEAR - Urine Color February 01, 2013 1:00am YELLOW - Urine Crystals February 01, 2013 1:00am NONE /LPF - Urine Culture Indicated February 01, 2013 1:00am NO - Urine Glucose (UA) February 01, 2013 1:00am NEGATIVE - Urine Ketones February 01, 2013 1:00am NEGATIVE - Urine Leukocyte Esterase February 01, 2013 1:00am NEGATIVE - Urine Mucus February 01, 2013 1:00am NEGATIVE /LPF - Urine Nitrate December 10, 2006 8:20am Negative - Urine Nitrite February 01, 2013 1:00am NEGATIVE - Urine Protein February 01, 2013 1:00am NEGATIVE - Urine RBC February 01, 2013 1:00am NONE / HPF - Urine Specific [place] February 01, 2013 1:00am 1.025 H - Urine Squamous Epithelial Cells February 01, 2013 1:00am RARE /HPF - Urine Urobilinogen February 01, 2013 1:00am 1 MG/DL - Urine WBC February 01, 2013 1:00am NONE / HPF - Urine pH February 01, 2013 1:00am 6 - Vancomycin Level Trough October 05, 2009 8:35am 7.6 MCG/ML L 10-20 White Blood Count February 01, 2013 1:00am 6.3 10^3/uL N 4.3-11.0 Pathology Consult Specimen December 15, 2006 7:15pm See report - Lab Scanned Report November 12, 2009 10:09am LAB Reports [id number] - Estimat Glomerular Filtration Rate February 01, 2013 1:00am > 60 - Creatine Kinase December 15, 2006 7:15pm 263 mg/dl H 21-170 Urine RBC (Auto) February 01, 2013 1:00am NEGATIVE - Procedures Procedure Code Date PRP I/TJ INIT BLOCK >5 YR 70846 OTHER SKIN & SUBQ I D 86.04 10/03/09 Blood Culture 10/01/09 Urine Culture 10/09/11 Gram Stain 10/01/09 Encounters Encounter Location Date/Time Discharged Inpatient [facility] 3:10am Departed Emergency Room [facility] 06/29 7:45pm
--- OUTSIDE RECORDS SUMMARY | 2016-12-10 13:47 | XMS REPORT | Continuity of Care Document ---
Author Author [facility] Organization [facility] Address Unknown Phone Unavailable Care Team Providers Care Burglar Alarm Mechanic Name Role Phone [facility] OF Insurance Providers Payer Name Policy Number Subscriber Name Relationship Self Pay Chacho Chen Self / Same As Patient Advance Directives Directive Response Recorded Date Advance Directives N 01/15/13 7:51pm Health Care Power of Grey Roll Man N 01/15/13 7:51pm Organ Donor N 01/15/13 7:51pm Problems No Known Problems or Medical conditions. Social History History Response Recorded Date/Time Alcohol Use Occasionally Uses 01/15/13 7: 51pm Recreational Drug Use N 01/15/13 7:51pm Allergies, Adverse Reactions, Alerts Allergen Type Severity Reaction Last Updated No Known Allergies Allergy Mild 10/01/09 Medications Medication Dose Units Route Sig Qty Days [antihistamine] 1 Tab PO d Gabapentin (Neurontin) 100 Mg PO HS Dicloxacillin Sodium 1 Each PO HS Pantoprazole [...] 25 SEC N 24-35 Alanine Aminotransferase (ALT/SGPT) October 09, 2011 9:50pm 72 U/L H 30-65 Albumin October 09, 2011 9:50pm 4.1 G/DL N 3.4-5.0 Alkaline Phosphatase October 09, 2011 9:50pm 82 U/L N 50-136 Aspartate Amino Transf (AST/SGOT) October 09, 2011 9:50pm 32 U/L N 15-37 BUN/Creatinine Ratio October 09, 2011 9:50pm 10 - Basophils # (Auto) October 09, 2011 9:50pm 0.0 10^3/uL N 0.0-0.1 Basophils (%) (Auto) October 09, 2011 9:50pm 0 % N 0-10 Blood Urea Nitrogen October 09, 2011 9:50pm 12 MG/DL N 7-18 C-Reactive Protein October 01, 2009 8:20pm 5.3 MG/DL H 0.2-0.9 Calcium Level October 09, 2011 9:50pm 9.3 MG/DL N 8.5-10.1 Carbamazepine (Tegretol) Level July 16, 2009 1:31pm < 2.0 UG/ML L 4.0-12.0 Carbon Dioxide Level October 09, 2011 9:50pm 33 MMOL/L H 21-32 Chloride Level October 09, 2011 9:50pm 99 MMOL/L L 101-110 Creatine Kinase MB December 15, 2006 7:23pm 0.6 NG/ML N 0.0-3.6 Creatinine October 09, 2011 9:50pm 1.2 MG/ DL N 0.6-1.3 Eosinophils # (Auto) October 09, 2011 9:50pm 0.1 10^3/uL N 0.0-0.3 Eosinophils (%) (Auto) October 09, 2011 9:50pm 1 % N 0-10 Gastric Fluid Occult Blood July 16, 2009 1:30pm NEGATIVE - Glucose Level October 09, 2011 9:50pm 75 MG/DL N 74-106 Hematocrit October 09, 2011 9:50pm 45 % N 40-54 Hemoglobin October 09, 2011 9:50pm 15.6 G/ DL N 13.3-17.7 Lipase October 09, 2011 9:50pm 114 U/L N 73-393 Lymphocytes # (Auto) October 09, 2011 9:50pm 2.4 X 10^3 N 1.0-4.0 Lymphocytes (%) (Auto) October 09, 2011 9:50pm 27 % N 12-44 Magnesium Level December 15, 2006 7:15pm 2.0 MG/DL N 1.8-2.4 Mean Corpuscular Hemoglobin October 09, 2011 9:50pm 32 PG N 25-34 Mean Corpuscular Hemoglobin Concent October 09, 2011 9:50pm 35 G/DL N 32-36 Mean Corpuscular Volume October 09, 2011 9:50pm 93 FL N 80-99 Mean Platelet Volume October 09, 2011 9:50pm 11.5 FL H 7.4-10.4 Monocytes # (Auto) October 09, 2011 9:50pm 0.8 X 10^3 N 0.0-1.0 Monocytes (%) (Auto) October 09, 2011 9:50pm 9 % N 0-12 Myoglobin December 15, 2006 7:15pm 35 UG/L N 10-92 Neutrophils # (Auto) October 09, 2011 9:50pm 5.7 X 10^3 N 1.8-7.8 Neutrophils (%) (Auto) October 09, 2011 9:50pm 63 % N 42-75 Platelet Count October 09, 2011 9:50pm 201 10^3/uL N 130-400 Potassium Level October 09, 2011 9:50pm 3.6 MMOL/L N 3.6-5.0 Prothromb Time International Ratio July 16, 2009 1:31pm 0.9 N 0.8-1.4 Prothrombin Time July 16, 2009 1:31pm 12.5 SEC N 12.2-14.7 Red Blood Count October 09, 2011 9:50pm 4.84 10^6/uL N 4.35-5.85 Red Cell Distribution Width October 09, 2011 9:50pm 12.9 % N 10.0-14.5 Sodium Level October 09, 2011 9:50pm 137 MMOL/L N 135-145 Total Bilirubin October 09, 2011 9:50pm 1.4 MG/DL H 0.0-1.0 Total Protein October 09, 2011 9:50pm 8.0 G/DL N 6.4-8.2 Troponin I July 27, 2007 9:30pm < 0.10 NG/ML 0.00-0.10 Urine Bacteria October 09, 2011 9:40pm FEW H - Urine Bilirubin October 09, 2011 9:40pm NEGATIVE - Urine Calcium Oxalate Crystals October 09, 2011 9:40pm FEW H - Urine Casts October 09, 2011 9:40pm NONE - Urine Clarity October 09, 2011 9:40pm SLIGHTLY CLOUDY - Urine Color October 09, 2011 9:40pm YELLOW - Urine Crystals October 09, 2011 9:40pm PRESENT H - Urine Culture Indicated October 09, 2011 9:40pm YES - Urine Glucose (UA) October 09, 2011 9:40pm NEGATIVE - Urine Ketones October 09, 2011 9:40pm NEGATIVE - Urine Leukocyte Esterase October 09, 2011 9:40pm NEGATIVE - Urine Mucus October 09, 2011 9:40pm MODERATE H - Urine Nitrate December 10, 2006 8:20am Negative - Urine Nitrite October 09, 2011 9:40pm NEGATIVE - Urine Protein October 09, 2011 9:40pm NEGATIVE - Urine RBC October 09, 2011 9:40pm NONE / HPF - Urine Specific [place] October 09, 2011 9:40pm 1.025 H - Urine Squamous Epithelial Cells October 09, 2011 9:40pm NONE - Urine Urobilinogen October 09, 2011 9:40pm NORMAL MG/DL - Urine WBC October 09, 2011 9:40pm 2-5 / HPF - Urine pH October 09, 2011 9:40pm 5.0 - Vancomycin Level Trough October 05, 2009 8:35am 7.6 MCG/ML L 10-20 White Blood Count October 09, 2011 9:50pm 9.0 10^3/uL N 4.3-11.0 Pathology Consult Specimen December 15, 2006 7:15pm See report - Lab Scanned Report November 12, 2009 10:09am LAB Reports [id number] - Estimat Glomerular Filtration Rate October 09, 2011 9:50pm > 60 - Creatine Kinase December 15, 2006 7:15pm 263 mg/dl H 21-170 Urine RBC (Auto) October 09, 2011 9:40pm NEGATIVE - Procedures Procedure Code Date PRP I/TJ INIT BLOCK >5 YR 81872 OTHER SKIN & SUBQ I D 86.04 10/03/09 Blood Culture 10/01/09 Urine Culture 10/09/11 Gram Stain 10/01/09 Encounters Encounter Location Date/Time Departed Emergency Room [facility] 06/29 7:45pm Discharged Inpatient [facility] 12:06am
--- OUTSIDE RECORDS SUMMARY | 2016-12-10 13:47 | XMS REPORT | Continuity of Care Document ---
Author Author [facility] Organization [facility] Address Unknown Phone Unavailable Care Team Providers Care Sales Counselor Name Role Phone [facility] OF Insurance Providers Payer Name Policy Number Subscriber Name Relationship Self Pay Chacho Chen 01 Self / Same As Patient Advance Directives Directive Response Recorded Date Advance Directives N 04/08/13 4:51pm Health Care Power of Social Welfare Clerk N 04/08/13 4:51pm Organ Donor N 04/08/13 4:51pm Problems No Known Problems or Medical conditions. Social History History Response Recorded Date/Time Alcohol Use Past History 04/08/13 5:29pm Recreational Drug Use Y [facility]C IN PAST 04/08 5:29pm Recent Foreign Travel N 04/08/13 4:51pm Recent Infectious Disease Exposure N 4:51pm Hospitalization with Isolation Contact 4:51pm Allergies, Adverse Reactions, Alerts Allergen Type Severity Reaction Last Updated NKANo Known Allergies Allergy Mild 10/01/09 Medications Medication Dose Units Route Sig Qty Days Ondansetron HCl (Zofran Oral Dissolve) 4 Mg PO Q4H 10 Pantoprazole Sodium (Protonix) 1 Tab PO DAILY 30 Hyoscyamine Sulfate (Hyoscyamine Sulfate 0.125 Mg) 1 - 2 Each PO Q4HR PRN 30 [Naproxen] Gabapentin (Neurontin) 200 Mg PO HS Hydroxyzine Hcl 10 Mg PO HS Loratadine 10 Mg PO HS Gabapentin (Neurontin) 100 Mg PO AM Diclofenac Sodium/Misoprostol (Diclofenac-Misoprost 50-0.2 Tb) 1 Tab PO DAILY Hydroxyzine Hcl 10 Mg PO HS [antihistamine] [...] 24-35 Alanine Aminotransferase (ALT/SGPT) February 01, 2013 6:20am 51 U/L N 30-65 Albumin February 01, 2013 6:20am 3.0 G/DL L 3.4-5.0 Alkaline Phosphatase February 01, 2013 6:20am 68 U/L N 50-136 Amylase Level February 01, 2013 1:00am 36 U/L N 25-115 Aspartate Amino Transf (AST/SGOT) February 01, 2013 6:20am 20 U/L N 15-37 BUN/Creatinine Ratio February 01, 2013 6:20am 10 - Basophils # (Auto) February 01, 2013 1:00am 0.0 10^3/uL N 0.0-0.1 Basophils (%) (Auto) February 01, 2013 1:00am 0 % N 0-10 Blood Urea Nitrogen February 01, 2013 6:20am 10 MG/DL N 7-18 C-Reactive Protein October 01, 2009 8:20pm 5.3 MG/DL H 0.2-0.9 Calcium Level February 01, 2013 6:20am 8.3 MG/DL L 8.5-10.1 Carbamazepine (Tegretol) Level July 16, 2009 1:31pm < 2.0 UG/ML L 4.0-12.0 Carbon Dioxide Level February 01, 2013 6:20am 31 MMOL/L N 21-32 Chloride Level February 01, 2013 6:20am 104 MMOL/L N 101-110 Creatine Kinase MB December 15, 2006 7:23pm 0.6 NG/ML N 0.0-3.6 Creatinine February 01, 2013 6:20am 1.0 MG /DL N 0.6-1.3 Eosinophils # (Auto) February 01, 2013 1:00am 0.1 10^3/uL N 0.0-0.3 Eosinophils (%) (Auto) February 01, 2013 1:00am 1 % N 0-10 Gastric Fluid Occult Blood July 16, 2009 1:30pm NEGATIVE - Glucose Level February 01, 2013 6:20am 89 MG/DL N 74-106 Hematocrit February 01, 2013 6:20am 42 % N 40-54 Hemoglobin February 01, 2013 6:20am 14.0 G /DL N 13.3-17.7 Lipase February 01, 2013 1:00am 120 U/L N 73-393 Lymphocytes # (Auto) February 01, 2013 1:00am 2.3 X 10^3 N 1.0-4.0 Lymphocytes (%) (Auto) February 01, 2013 1:00am 36 % N 12-44 Magnesium Level December 15, 2006 7:15pm 2.0 MG/DL N 1.8-2.4 Mean Corpuscular Hemoglobin February 01, 2013 6:20am 31 PG N 25-34 Mean Corpuscular Hemoglobin Concent February 01, 2013 6:20am 34 G/DL N 32-36 Mean Corpuscular Volume February 01, 2013 6:20am 93 FL N 80-99 Mean Platelet Volume February 01, 2013 6:20am 11.0 FL H 7.4-10.4 Monocytes # (Auto) February 01, 2013 1:00am 0.6 X 10^3 N 0.0-1.0 Monocytes (%) (Auto) February 01, 2013 1:00am 9 % N 0-12 Myoglobin December 15, 2006 7:15pm 35 UG/L N 10-92 Neutrophils # (Auto) February 01, 2013 1:00am 3.4 X 10^3 N 1.8-7.8 Neutrophils (%) (Auto) February 01, 2013 1:00am 54 % N 42-75 Platelet Count February 01, 2013 6:20am 177 10^3/uL N 130-400 Potassium Level February 01, 2013 6:20am 3.7 MMOL/L N 3.6-5.0 Prothromb Time International Ratio July 16, 2009 1:31pm 0.9 N 0.8-1.4 Prothrombin Time July 16, 2009 1:31pm 12.5 SEC N 12.2-14.7 Red Blood Count February 01, 2013 6:20am 4.49 10^6/uL N 4.35-5.85 Red Cell Distribution Width February 01, 2013 6:20am 12.8 % N 10.0-14.5 Sodium Level February 01, 2013 6:20am 138 MMOL/L N 135-145 Total Bilirubin February 01, 2013 6:20am 0.8 MG/DL N 0.0-1.0 Total Protein February 01, 2013 6:20am 6.3 G/DL L 6.4-8.2 Troponin I July 27, 2007 9:30pm [...] 1:00am NONE / HPF - Urine Specific [place] February 01, 2013 1:00am 1.025 H - Urine Squamous Epithelial Cells February 01, 2013 1:00am RARE /HPF - Urine Urobilinogen February 01, 2013 1:00am 1 MG/DL - Urine WBC February 01, 2013 1:00am NONE / HPF - Urine pH February 01, 2013 1:00am 6 - Vancomycin Level Trough October 05, 2009 8:35am 7.6 MCG/ML L 10-20 White Blood Count February 01, 2013 6:20am 5.6 10^3/uL N 4.3-11.0 Pathology Consult Specimen December 15, 2006 7:15pm See report - Lab Scanned Report November 12, 2009 10:09am LAB Reports [id number] - Estimat Glomerular Filtration Rate February 01, 2013 1:00am > 60 - Creatine Kinase December 15, 2006 7:15pm 263 mg/dl H 21-170 Urine RBC (Auto) February 01, 2013 1:00am NEGATIVE - Procedures Procedure Code Date PRP I/TJ INIT BLOCK >5 YR 95687 OTHER SKIN & SUBQ I D 86.04 10/03/09 UPPER GI ENDOSCOPY BIOPSY [id number] 02/01/13 Blood Culture 10/01/09 MRSA Screen 02/02/13 Urine Culture 10/09/11 Gram Stain 10/01/09 Encounters Encounter Location Date/Time Registered Emergency Room [facility] 04/08/13 4:41pm Departed Emergency Room [facility] 06/29 7:45pm Discharged Inpatient [facility] 12:06am
--- OUTSIDE RECORDS SUMMARY | 2016-12-10 13:47 | XMS REPORT ---
Author Author JOSE CASTRO Organization [employer] Address Unknown Phone Unavailable Care Team Providers Care Vp Product Marketing Name Role Phone JOSE CASTRO CP Unavailable Allergies No Known Allergies Problems Problem Type Condition Code Onset Dates Condition Status Problem Unspecified hereditary and idiopathic peripheral neuropathy 356.9 Active Problem Unspecified tinnitus 388.30 Active Problem Abdominal pain, epigastric 789.06 Active Problem Pain in joint, site unspecified 719.40 Active Problem Acute sinusitis, unspecified 461.9 Active Problem Dysfunction of Eustachian tube 381.81 Active Problem Acute bronchitis 466.0 Active Problem Impacted cerumen 380.4 Active Problem Acute pharyngitis 462 Active Problem Other abnormal glucose 790.29 Active Medications Medication Code System Code Instructions Start Date End Date Status Dosage Loratadine [facility] [address]-44 10 MG May 19, 2013 take 1 tablet by Oral route 1 time per day Results No Known Results Summary Purpose [employer] Submission
--- OUTSIDE RECORDS SUMMARY | 2016-12-10 13:48 | XMS REPORT ---
Author Author JOSE CASTRO Organization [employer] Address Unknown Phone Unavailable Care Team Providers Care Laborer [place] Name Role Phone JOSE CASTRO CP Unavailable [...] Problem Other abnormal glucose 790.29 Active Medications No Known Medications Results No Known Results Summary Purpose [employer] Submission
--- OUTSIDE RECORDS SUMMARY | 2016-12-10 13:48 | XMS REPORT | Continuity of Care Document ---
Author Author [facility] Organization [facility] Address Unknown Phone Unavailable Care Team Providers Care Patent Prosecution Paralegal Name Role Phone JOSE CASTRO PP Insurance Providers Payer Name Policy Number Subscriber Name Relationship Self Pay Chacho Chen 01 Self / Same As Patient Advance Directives Directive Response Recorded Date Advance Directives N 04/09/13 3:25pm Health Care Power of Cna Caregiver N 04/09/13 3:25pm Organ Donor N 04/09/13 3:25pm Problems No Known Problems or Medical conditions. Social History History Response Recorded Date/Time Alcohol Use Past History 04/09/13 3:25pm Recreational Drug Use Y THC IN PAST 04/09 3:25pm Recent Foreign Travel N 04/09/13 3:25pm Recent Infectious Disease Exposure N 3:25pm Hospitalization with Isolation Contact 8:48pm Allergies, Adverse Reactions, Alerts Allergen Type Severity Reaction Last Updated NKANo Known Allergies Allergy Mild 10/01/09 Medications Medication Dose Units Route Sig Qty Days Ondansetron Hcl (Zofran Tablet (Non-Stock Strength)) 8 Mg PO Q4H 20 Ondansetron HCl (Zofran Oral Dissolve) 4 Mg [...] Hfa) 8.5 Gm IH Q4H PRN 1 Immunizations Name Given Type influenza, split (incl. purified surface antigen) 04/09/13 A influenza, split (incl. purified surface antigen) 04/09/13 A Response Recorded Date/Time Status not known Unknown Results Test Date Result Interp. Ref. Range Activated Partial Thromboplast Time July 16, 2009 1:31pm 25 SEC N 24-35 Alanine Aminotransferase (ALT/SGPT) April 09, 2013 12: 20pm 63 U/L N 30-65 Albumin April 09, 2013 12:20pm 3.6 G/ DL N 3.4-5.0 Alkaline Phosphatase April 09, 2013 12:20pm 80 U/L N 50-136 Amylase Level April 09, 2013 12:20pm 32 U/L N 25-115 Aspartate Amino Transf (AST/SGOT) April 09, 2013 12:20pm 25 U/L N 15-37 BUN/Creatinine Ratio April 09, 2013 12:20pm 12 - Basophils # (Auto) April 09, 2013 12:20pm 0.0 10^3/uL N 0.0-0.1 Basophils (%) (Auto) April 09, 2013 12:20pm 0 % N 0-10 Blood Urea Nitrogen April 09, 2013 12:20pm 12 MG/DL N 7-18 C-Reactive Protein October 01, 2009 8:20pm 5.3 MG/DL H 0.2-0.9 Calcium Level April 09, 2013 12:20pm 8.7 MG/DL N 8.5-10.1 Carbamazepine (Tegretol) Level July 16, 2009 1:31pm < 2.0 UG/ML L 4.0-12.0 Carbon Dioxide Level April 09, 2013 12:20pm 32 MMOL/L N 21-32 Chloride Level April 09, 2013 12:20pm 104 MMOL/L N 101-110 Creatine Kinase MB December 15, 2006 7:23pm 0.6 NG/ML N 0.0-3.6 Creatinine April 09, 2013 12:20pm 1.0 MG/DL N 0.6-1.3 Eosinophils # (Auto) April 09, 2013 12:20pm 0.1 10^3/uL N 0.0-0.3 Eosinophils (%) (Auto) April 09, 2013 12:20pm 1 % N 0-10 Gastric Fluid Occult Blood July 16, 2009 1:30pm NEGATIVE - Glucose Level April 09, 2013 12:20pm 96 MG/DL N 74-106 Hematocrit April 09, 2013 12:20pm 45 % N 40-54 Hemoglobin April 09, 2013 12:20pm 15.4 G/DL N 13.3-17.7 Lipase April 09, 2013 12:20pm 118 U/L N 73-393 Lymphocytes # (Auto) April 09, 2013 12:20pm 1.3 X 10^3 N 1.0-4.0 Lymphocytes (%) (Auto) April 09, 2013 12:20pm 24 % N 12-44 Magnesium Level December 15, 2006 7:15pm 2.0 MG/DL N 1.8-2.4 Mean Corpuscular Hemoglobin April 09, 2013 12:20pm 32 PG N 25-34 Mean Corpuscular Hemoglobin Concent April 09, 2013 12: 20pm 35 G/DL N 32-36 Mean Corpuscular Volume April 09, 2013 12:20pm 92 FL N 80-99 Mean Platelet Volume April 09, 2013 12:20pm 11.1 FL H 7.4-10.4 Monocytes # (Auto) April 09, 2013 12:20pm 0.4 X 10^3 N 0.0-1.0 Monocytes (%) (Auto) April 09, 2013 12:20pm 8 % N 0-12 Myoglobin December 15, 2006 7:15pm 35 UG/L N 10-92 Neutrophils # (Auto) April 09, 2013 12:20pm 3.5 X 10^3 N 1.8-7.8 Neutrophils (%) (Auto) April 09, 2013 12:20pm 66 % N 42-75 Platelet Count April 09, 2013 12:20pm 173 10^3/uL N 130-400 Potassium Level April 09, 2013 12:20pm 3.6 MMOL/L N 3.6-5.0 Prothromb Time International Ratio July 16, 2009 1:31pm 0.9 N 0.8-1.4 Prothrombin Time July 16, 2009 1:31pm 12.5 SEC N 12.2-14.7 Red Blood Count April 09, 2013 12:20pm 4.86 10^6/uL N 4.35-5.85 Red Cell Distribution Width April 09, 2013 12:20pm 12.6 % N 10.0-14.5 Sodium Level April 09, 2013 12:20pm 140 MMOL/L N 135-145 Total Bilirubin April 09, 2013 12:20pm 1.0 MG/DL N 0.0-1.0 Total Protein April 09, 2013 12:20pm 7.0 G/DL N 6.4-8.2 Troponin I July 27, 2007 9:30pm < 0.10 NG/ML 0.00-0.10 Urine Bacteria April 08, 2013 5:25pm NEGATIVE /HPF - Urine Bilirubin April 08, 2013 5:25pm NEGATIVE - Urine Calcium Oxalate Crystals October 09, 2011 9:40pm FEW H - Urine Casts April 08, 2013 5:25pm NONE /LPF - Urine Clarity April 08, 2013 5:25pm CLEAR - Urine Color April 08, 2013 5:25pm YELLOW - Urine Crystals April 08, 2013 5:25pm NONE /LPF - Urine Culture Indicated April 08, 2013 5:25pm NO - Urine Glucose (UA) April 08, 2013 5:25pm NEGATIVE - Urine Ketones April 08, 2013 5:25pm NEGATIVE - Urine Leukocyte Esterase April 08, 2013 5:25pm NEGATIVE - Urine Mucus April 08, 2013 5:25pm NEGATIVE /LPF - Urine Nitrate December 10, 2006 8:20am Negative - Urine Nitrite April 08, 2013 5:25pm NEGATIVE - Urine Protein April 08, 2013 5:25pm NEGATIVE - Urine RBC April 08, 2013 5:25pm NONE / HPF - Urine Specific [place] April 08, 2013 5:25pm 1.020 - Urine Squamous Epithelial Cells February 01, 2013 1:00am RARE /HPF - Urine Urobilinogen April 08, 2013 5:25pm 1 MG/DL - Urine WBC April 08, 2013 5:25pm RARE / HPF - Urine pH April 08, 2013 5:25pm 6 - Vancomycin Level Trough October 05, 2009 8:35am 7.6 MCG/ML L 10- White Blood Count April 09, 2013 12:20pm 5.2 10^3/uL N 4.3-11.0 Pathology Consult Specimen December 15, 2006 7:15pm See report - Lab Scanned Report November 12, 2009 10:09am LAB Reports [id number] - Estimat Glomerular Filtration Rate April 09, 2013 12:20pm > 60 - Creatine Kinase December 15, 2006 7:15pm 263 mg/dl H 21-170 Urine RBC (Auto) April 08, 2013 5:25pm NEGATIVE - Procedures Procedure Code Date PRP I/TJ INIT BLOCK >5 YR 00209 OTHER SKIN & SUBQ I D 86.04 10/03/09 UPPER GI ENDOSCOPY BIOPSY 74279 02/01/13 Blood Culture 10/01/09 MRSA Screen 02/02/13 Urine Culture 10/09/11 Gram Stain 10/01/09 Encounters Encounter Location Date/Time Discharged Inpatient [facility] 2:25pm Departed Emergency Room [facility] 4:41pm
--- OUTSIDE RECORDS SUMMARY | 2016-12-10 13:48 | XMS REPORT | Continuity of Care Document ---
Author Author [facility] Organization [facility] Address Unknown Phone Unavailable Care Team Providers Care Clerical Assigner Name Role Phone JOSE CASTRO PP Insurance Providers Payer Name Policy Number Subscriber Name Relationship Self Pay Chacho Chen 01 Self / Same As Patient Advance Directives Directive Response Recorded Date Advance Directives N 04/09/13 3:25pm Health Care Power of Line Puller N 04/09/13 3:25pm Organ Donor N 04/09/13 [...] Recorded Date/Time Status not known Unknown Results No Known Relevant Diagnostic Tests, Laboratory Data and/or Discharge Summary. Procedures Procedure Code Date PRP I/TJ INIT BLOCK >5 YR 14874 OTHER SKIN & SUBQ I D 86.04 10/03/09 UPPER GI ENDOSCOPY BIOPSY 40519 02/01/13 Encounters Encounter Location Date/Time Discharged Inpatient [facility] 2:47pm Departed Emergency Room [facility] 4:41pm
--- OUTSIDE RECORDS SUMMARY | 2016-12-10 13:48 | XMS REPORT ---
Author Author JOSE CASTRO Organization [employer] Address Unknown Phone Unavailable Care Team Providers Care Forge Heater Name Role Phone JOSE CASTRO CP Unavailable [...] Instructions Start Date End Date Status Dosage Cetirizine HCl [facility] [address]-76 10 mg Orally Once a day January 04, 2016 Apr 03, 2016 1 tablet PredniSONE [facility] [address]-34 20 mg Orally Once a day January 04, 2016December 2 tablets Results No Known Results Summary Purpose [employer] Submission
== END 2016-12-06 13:48 | disposition home or self-care (01) ==
LOC: EDUNIT# 12:40 → ER 12:42
DX: R07.89 Other chest pain (principal)
CPT/HCPCS: 36415; 71020; 80053; 83735; 83874; 84484; 85025; 85610; 85730; 93005; 93041

== ENCOUNTER 2017-05-10 21:09 | Emergency (ER) | payer SELFPAY ==
[~2017-05-10] VITALS: Ht 172.7 cm; Wt 117.9 kg
[~2017-05-10 21:09] MED LIST changes: -NAPR500T3 PO; +NAPR500T4 PO
--- NOTE | 2017-05-10 23:27 | ED General ---
General Chief Complaint: Rect Problems Stated Complaint: BLEEDING WOUND NEAR RECTUM Nursing Triage Note: PT TO ED W/ C/O "BUMP BY BUTTHOLE" ONSET X2 WKS. DENIES SEEING PCP FOR C/O. DOES REPORT HAVING HIS TAKE A PICTURE OF "BUMP" AND SENDING IT TO HIS PARENTS THEY HAVE HEMORRHOIDS AND THOUGHT THEY COULD IDENTIFY IT FOR HIM. PT NOW REPORTS THEY "BUMP" HAS GOTTEN BIGGER ET IS NOW BLEEDING. NO OTHER C/O VOICED Nursing Sepsis Screen: No Definite Risk Source of Information: Patient Exam Limitations: No Limitations History of Present Illness Time Seen by Provider: 23:00 Initial Comments Here with report of pain at the anus as well as feeling a lump there. Noted blood in his underwear tonight was very concerned. He came in for further evaluation. Does note that he's had some difficulty with bowel movements recently but doesn't feel like he has had a lot of hard stools or difficulty with pushing. Patient does carry a lot of central weight. Timing/Duration: 1-2 Days Severity: Mild Associated Systoms: No Fever/Chills, No Nausea/Vomiting, No Shortness of Air Allergies and Home Medications Allergies Coded Allergies: No Known Drug Allergies (Unverified , 06/28/15) Home Medications Cyclobenzaprine HCl 10 Mg Tablet, 10 MG PO Q8H, #15 Prescribed by: DAISY BILLINGS on 10/24/151755 Docusate Sodium 100 Mg Capsule, 100 MG PO BID, #60 Prescribed by: ROSEMARIE REINA on 06/30/15 1057 Gabapentin 300 Mg Capsule, 300 MG PO HS, (Reported) Hydrocodone/Acetaminophen 1 Each Tablet, 1 TAB PO Q4H PRN, #30 Prescribed by: ROSEMARIE REINA on 06/30/15 1057 Loratadine 10 Mg Tablet, 10 MG PO HS, (Reported) Naproxen 500 Mg Tablet, 500 MG PO BID, #20 Prescribed by: DAISY BILLINGS on 10/24/151755 Constitutional: see HPI, No chills, No fever Respiratory: no symptoms reported Cardiovascular: no symptoms reported Gastrointestinal: see HPI, other (rectal bleeding) Genitourinary: no symptoms reported Skin: see HPI Past [id number]-Mztyok Hx Patient Social History Alcohol Use: Denies Use Recreational Drug Use: No Smoking Status: Never a Smoker 2nd Hand Smoke Exposure: No Recent Foreign Travel: No Contact w/Someone Who Travel: No Recent Infectious Disease Expo: No Recent Hopitalizations: No Physical Abuse: No Sexual Abuse: No Mistreated: No Fear: No Immunizations Up To Date Tetanus Booster (TDap): Unknown Seasonal Allergies Seasonal Allergies: Yes Surgeries History of Surgeries: Yes Surgeries: Abdominal, Ear Surgery Respiratory History of Respiratory Disorde: Yes (CPAP) Respiratory Disorders: Sleep Apnea Cardiovascular History of Cardiac Disorders: No Neurological History of Neurological Disord: No Reproductive System Hx Reproductive Disorders: No Sexually Transmitted Disease: No HIV/AIDS: No Gastrointestinal History of Gastrointestinal Di: Yes Gastrointestinal Disorders: Abdominal Hernia Musculoskeletal History of Musculoskeletal Dis: Yes Musculoskeletal Disorders: Arthritis, Gout Endocrine History of Endocrine Disorders: No HEENT HEENT Disorders: Chronic Ear Infection Loss of Vision: Denies Hearing Impairment: Hard of Hearing Cancer History of Cancer: No Psychosocial History of Psychiatric Problem: No Suicide Risk Score: 0 Integumentary History of Skin or Integumenta: No Blood Transfusions History of Blood Disorders: No Adverse Reaction to a Blood Tr: No Reviewed Nursing Assessment Reviewed/Agree w Nursing PMH: Yes Family Medical History Significant Family History: No Pertinent Family Hx Physical Exam Vital Signs Vital Sign - Last 12Hours 05/10/17 21:17 Temp 98.2 Pulse 69 Resp 20 B/P (MAP) 129/83 Pulse Ox 95 O2 Delivery Room Air Capillary Refill : Less Than 3 Seconds General Appearance: No Apparent Distress, WD/WN Respiratory: Lungs Clear, Normal Breath Sounds Cardiovascular: Regular Rate, Rhythm, No Murmur Gastrointestinal: Non Tender, Soft Rectal: Hemorrhoids, Tenderness, Other (2 x 2 centimeter hemorrhoid that is thrombosed with area of previous bleeding. Not currently bleeding.) Skin: Normal Color, Warm/Dry Progress/Results/Core Measures Suspected Sepsis Recent Fever Within 48 Hours: No Infection Criteria Present: None New/Unexplained Altered Menta: No Sepsis Screen: No Definite Risk Sepsis Diagnosis: SIRS Temperature:98.2 Pulse: 69 Respiratory Rate: 20 Blood Pressure 129 /83 Mean: 98 Results/Orders Vital Signs/I&O Vital Sign - Last 12Hours 05/10/17 21:17 Temp 98.2 Pulse 69 Resp 20 B/P (MAP) 129/83 Pulse Ox 95 O2 Delivery Room Air Capillary Refill : Less Than 3 Seconds Blood Pressure Mean: 98 Progress Note : Progress Note Seen and evaluated. Discharged home with return precautions. Patient verbalize understanding instructions and agreement with plan. Departure Impression Impression: Primary Impression: Hemorrhoids Qualified Codes: K64.5 - Perianal venous thrombosis Disposition: 01 HOME, SELF-CARE Condition: Stable Departure-Patient Inst. Decision time for Depature: 23:26 Referrals: [facility] (PCP/Family) Primary Care Physician Patient Instructions: Hemorrhoids (DC) Add. Discharge Instructions: All discharge instructions reviewed with patient and/or family. Voiced understanding. You may use [id number] Preparation H or similar on the area of hemorrhoid. He may also use witch tom pads. You may use MiraLAX or the generic one half to one capful twice daily as needed to keep stools soft. You may increase or decrease the dose as needed to keep stools and normal range. Follow-up with your doctor and/or surgeon of your choice for recheck and further evaluation. You should gently rinse area after bowel movement and pat dry. Do not wipe vigorously as this will increase bleeding. JANET CALLOWAY MD May 10, 2017 23:27
[2017-05-10 23:29] VITALS: BP 0/0
== END 2017-05-10 23:29 | disposition home or self-care (01) ==
LOC: EDUNIT# 21:09 → ER 21:12
DX: K64.5 Perianal venous thrombosis (principal); G47.30 Sleep apnea, unspecified; M10.9 Gout, unspecified; Z87.19 Personal history of other diseases of the digestive system
CPT/HCPCS: 99282

== ENCOUNTER 2017-11-05 06:31 | Emergency (ER) | payer SELFPAY ==
[~2017-11-05] VITALS: Ht 172.7 cm; Wt 118.0 kg
[~2017-11-05 06:31] MED LIST changes: +ACHD5005 PO; -HYDR-3812 PO; +NAPR-915 PO; -NAPR500T4 PO
[2017-11-05] MEDS ORDERED: TETANUS,DIPTH,PERTUSS P/F (BOOSTRIX) 0.5 ML VIAL IM ONE (06:45)
[2017-11-05] MEDS ORDERED: fentaNYL INJECTION 100 MCG/2 ML AMP IVP ONE ×2 (06:45→08:00)
--- NOTE | 2017-11-05 06:55 | ED Fall/Injury ---
General Chief Complaint: Trauma-Non Activation Stated Complaint: FELL FACE FIRST OF PORCH,HAVING TROUBLE STANDING Nursing Triage Note: FALL FROM PORCH, NO LOC, LACERATION TO LOWER LIP, LOWER BACK PAIN. Source: patient Exam Limitations: no limitations History of Present Illness Date Seen by Provider: November 05, 2017 Time Seen by Provider: 06:37 Initial Comments This 39-year-old gentleman presents to the emergency room about an hour after falling over the railing of his porch and onto the rocks below. He was leaning over the railing to reach a dog when he fell. He fell face first injuring his face and back. His legs were still elevated over the railing when his face struck the rocks. He denies loss of consciousness. He does report nausea which has now passed. He denies any neck pain or tenderness but states "the muscles feel stiff". He is alert and oriented. He arrives via wheelchair due to thoracic and lower back pain. He has some minor abrasions and bruising over his upper abdomen and chest but no significant tenderness in those areas. He has a large laceration through his lower lip. There is a small laceration over the bridge of his nose. He is not up-to-date on his tetanus immunizations. Location Injury Occurred: HOME Allergies and Home Medications Allergies Coded Allergies: No Known Drug Allergies (Unverified , 06/28/15) Home Medications Cyclobenzaprine HCl 10 Mg Tablet, 10 MG PO Q8H Prescribed by: DAISY BILLINGS on 10/24/151755 Docusate Sodium 100 Mg Capsule, 100 MG PO BID Prescribed by: ROSEMARIE REINA on 06/30/15 105 Gabapentin 300 Mg Capsule, 300 MG PO HS, (Reported) Hydrocodone Bit/Acetaminophen 1 Each Tablet, 1 TAB PO Q4H PRN Prescribed by: ROSEMARIE REINA on 06/30/15 105 Loratadine 10 Mg Tablet, 10 MG PO HS, (Reported) Naproxen 500 Mg Tablet, 500 MG PO BID Prescribed by: DAISY BILLINGS on 10/24/151755 Sulfamethoxazole/Trimethoprim 1 Each Tablet, 1 EACH PO BID Prescribed by: VICTORINO TORREZ on 11/05/17 0859 Patient Home Medication List Home Medication List Reviewed: Yes Review of Systems Constitutional: no symptoms reported Eyes: No Symptoms Reported Ears, Nose, Mouth, Throat: see HPI Respiratory: no symptoms reported Cardiovascular: no symptoms reported Gastrointestinal: see HPI Genitourinary: no symptoms reported Musculoskeletal: see HPI Skin: see HPI Psychiatric/Neurological: See HPI Past Udwevaj-Zfvgce-Dlrbwl Hx Past Med/Social Hx: Reviewed and Corrections made Patient Social History Alcohol Use: Denies Use Recreational Drug Use: No Smoking Status: Never a Smoker 2nd Hand Smoke Exposure: No Recent Foreign Travel: No Contact w/Someone Who Travel: No Recent Infectious Disease Expo: No Recent Hopitalizations: No Immunizations Up To Date Tetanus Booster (TDap): Unknown Seasonal Allergies Seasonal Allergies: Yes Past Medical History Surgeries: Yes Abdominal (inguinal and umbilical hernias), Ear Surgery Respiratory: Yes (CPAP) Sleep Apnea Cardiac: No Neurological: No Reproductive Disorders: No Sexually Transmitted Disease: No HIV/AIDS: No Gastrointestinal: Yes Abdominal Hernia Musculoskeletal: Yes Arthritis, Gout Endocrine: No HEENT: Yes Chronic Ear Infection Loss of Vision: Denies Hearing Impairment: Hard of Hearing Cancer: No Psychosocial: No Integumentary: No Blood Disorders: No Adverse Reaction/Blood Tranf: No Family Medical History No Pertinent Family Hx Physical Exam Vital Signs Vital Signs - First Documented 11/05/17 06:40 Temp 98.1 Pulse 74 Resp 18 B/P (MAP) 154/94 (114) Pulse Ox 98 O2 Delivery Room Air Capillary Refill : Less Than 3 Seconds General Appearance: WD/WN, no apparent distress HEENT: PERRL/EOMI, TMs normal, pharynx normal, other (no dental injury. Large laceration through the lower lip. Abrasion and shallow laceration over the bridge of the nose and forehead. 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 Injuries to face as described above.) Shelton Coma Score Best Eye Response: (4) Open Spontaneously Best Verbal Response: (5) Oriented Best Motor Response: (6) Obeys Commands Shelton Total: 15 Procedures/Interventions Wound Location: Face Other Wound Location Left lower lip Wound Length (cm): 2 Wound's Depth, Shape: sub Q Wound Explored: clean Irrigated w/ Saline (ccs): 500 (sterile water) Suture: Prolene Suture Size: 5-0 Number of Sutures: 3 Sterile Dressing Applied?: No Progress Wound was anesthetized locally with lidocaine by topical soaking and injection. Wound was irrigated with sterile water. Skin was cleansed with chlorhexidine. Wound was then approximated with 5-0 Prolene sutures taking great care to precisely align the vermilion border. Patient tolerated the procedure well. Wound Location: Face Other Wound Location Bridge of the nose Wound Length (cm): 0.7 Wound's Depth, Shape: superficial Wound Explored: clean Number of Sutures: 1 Sterile Dressing Applied?: No Progress Wound was topically anesthetized with lidocaine. It was cleaned with chlorhexidine and sterile water. Wound was approximated with a single Prolene suture. Progress/Results/Core Measures Results/Orders Lab Results Laboratory Tests Test 11/05/17 06:50 Range/Units White Blood Count 6.6 4.3-11.0 10^3/uL Red Blood Count 5.06 4.35-5.85 10^6/uL Hemoglobin 16.0 13.3-17.7 G/DL Hematocrit 47 40-54 % Mean Corpuscular Volume 92 80-99 FL Mean Corpuscular Hemoglobin 32 25-34 PG Mean Corpuscular Hemoglobin Concent 34 32-36 G/DL Red Cell Distribution Width 13.1 10.0-14.5 % Platelet Count 195 130-400 10^3/uL Mean Platelet Volume 11.1 H 7.4-10.4 FL Neutrophils (%) (Auto) 65 42-75 % Lymphocytes (%) (Auto) 26 12-44 % Monocytes (%) (Auto) 8 0-12 % Eosinophils (%) (Auto) 1 0-10 % Basophils (%) (Auto) 0 0-10 % Neutrophils # (Auto) 4.3 1.8-7.8 X 10^3 Lymphocytes # (Auto) 1.7 1.0-4.0 X 10^3 Monocytes # (Auto) 0.5 0.0-1.0 X 10^3 Eosinophils # (Auto) 0.1 0.0-0.3 10^3/uL Basophils # (Auto) 0.0 0.0-0.1 10^3/uL Sodium Level 144 135-145 MMOL/L Potassium Level 3.8 3.6-5.0 MMOL/L Chloride Level 106 98-107 MMOL/L Carbon Dioxide Level 27 21-32 MMOL/L Anion Gap 11 5-14 MMOL/L Blood Urea Nitrogen 19 H 7-18 MG/DL Creatinine 0.89 0.60-1.30 MG/DL Estimat Glomerular Filtration Rate > 60 BUN/Creatinine Ratio 21 Glucose Level 124 H 70-105 MG/DL Calcium Level 9.8 8.5-10.1 MG/DL Total Bilirubin 1.5 H 0.1-1.0 MG/DL Aspartate Amino Transf (AST/SGOT) 20 5-34 U/L Alanine Aminotransferase (ALT/SGPT) 37 0-55 U/L Alkaline Phosphatase 58 40-136 U/L Total Protein 7.7 6.4-8.2 GM/DL Albumin 4.5 3.2-4.5 GM/DL Serum Alcohol < 10 <10 MG/DL My Orders Orders - VICTORINO SANTAMARIA MD Alcohol (11/05/17 06:45) Cbc With Automated Diff (11/05/17 06:45) Comprehensive Metabolic Panel (11/05/17 06:45) Saline Lock/Iv-Start (11/05/17 06:45) Ct Head/Face/Cervical Wo (11/05/17 06:45) Ct Thoracic/Lumbar Spine Wo (11/05/17 06:45) Chest 1 View, Ap/Pa Only (11/05/17 06:45) Fentanyl Injection (Sublimaze Injection (11/05/17 06:45) Dipht,Pertuss(Acell),Tet Adult (Boostrix (11/05/17 06:45) Lidocaine 1% Inj 20 Ml (Xylocaine 1% Inj (11/05/17 07:00) Ct Chest/Abdomen/Pelvis W (11/05/17 07:11) Fentanyl Injection (Sublimaze Injection (11/05/17 08:00) Sulfamethoxazole/Trimet Ds Tab (Bactrim (11/05/17 09:00) Medications Given in ED Current Medications Medications Dose Ordered Sig/Hardeep Route Start Time Stop Time Status Last Admin Dose Admin Fentanyl Citrate 50 mcg ONCE ONCE IVP 11/05/17 08:00 11/05/17 08:01 DC 11/05/17 08:33 50 MCG Lidocaine HCl 20 ml ONCE ONCE INJ 11/05/17 07:00 11/05/17 07:01 DC 11/05/17 07:47 20 ML Vital Signs/I&O 11/05/17 11/05/17 11/05/17 11/05/17 06:40 07:46 07:46 07:47 Temp 98.1 98.1 98.1 98.1 Pulse 74 Resp 18 B/P (MAP) 154/94 (114) Pulse Ox 98 O2 Delivery Room Air 11/05/17 11/05/17 08:33 09:26 Temp 98.1 98.1 Pulse 74 Resp 18 B/P (MAP) 154/94 (114) Pulse Ox 98 Blood Pressure Mean: 114 Progress Progress Note #1: Time: 06:55 Progress Note Patient seen and examined. Orders placed. Patient did request medication for pain. Fentanyl was ordered. Progress Note #2: Time: 07:11 Progress Note Bruising on the chest and abdomen is becoming more prominent. Patient was reexamined and now admits to tenderness in the chest and upper abdomen. CT chest, abdomen and pelvis was added to the imaging. Progress Note #3: Progress Note Patient received 2 doses of fentanyl to manage his pain. CT imaging demonstrated no significant injuries. The laceration over the bridge of the nose was approximated with a single suture. The lip laceration was approximated with 3 sutures. Patient was advised that scarring was likely and that the vermilion border may not match up perfectly as the alignment may shift as swelling decreases. Patient was started on Bactrim for infection prophylaxis as he has a history of MRSA. He was also given a tetanus booster. Diagnostic Imaging Diagonstic Imaging: CT Plain Films/CT/US/NM/MRI: chest, abdomen, pelvis Comments CT chest, abdomen and pelvis viewed by me and report reviewed. See report below : NAME: CHACHO CHEN [facility] REC#: [id number] PT STATUS: REG ER : 1970 PHYSICIAN: VICTORINO SANTAMARIA MD ADMIT DATE: 11/05/17/ER Signed Date of Exam: 11/05/17 CT CHEST/ABDOMEN/PELVIS W PROCEDURE: CT chest, abdomen, and pelvis with contrast. TECHNIQUE: Multiple contiguous axial images were obtained through the chest, abdomen, and pelvis after the administration of intravenous contrast. INDICATION: Abdominal pain after fall. Trauma. COMPARISON: None available. FINDINGS: Chest: Normal thyroid. No subclavicular axillary lymphadenopathy. No evidence of mediastinal hemorrhage. No mediastinal or hilar lymphadenopathy. Normal heart size without pericardial effusion. Normal caliber thoracic aorta without evidence of acute traumatic injury. No pleural effusion or pneumothorax. No pulmonary consolidations to indicate laceration or contusion. No acute rib fractures. <> Abdomen and pelvis: No free intraperitoneal air or fluid. The liver and spleen enhance normally without evidence of subcapsular hematoma or laceration. The adrenals, gallbladder and pancreas are normal. The kidneys enhance symmetrically without evidence of traumatic injury. Postcontrast imaging demonstrates opacification of normal caliber ureters and the urinary bladder without evidence of ureteral injury or bladder rupture. No dilated loops of bowel. Normal caliber bowel aorta without evidence of retroperitoneal hemorrhage. No abdominal or pelvic lymphadenopathy. No acute fracture of the pelvis or proximal femurs. IMPRESSION: 1. No acute traumatic injury in the chest, abdomen or pelvis. Dictated by: Dictated on workstation # [id number] Dict: 11/05/17749 Trans: 11/05/17752 Interpreted by: DAVID LAFLEUR MD Electronically signed by: DAVID LAFLEUR MD 11/05/17752 Diagonstic Imaging: CT Plain Films/CT/US/NM/MRI: facial bones, c-spine, head Comments CT head, facial bones and C-spine viewed by me and report reviewed. See report below: NAME: CHACHO CHEN [facility] REC#: [id number] PT STATUS: DEP ER : 1970 PHYSICIAN: VICTORINO SANTAMARIA MD ADMIT DATE: 11/05/17/ER Signed Date of Exam: 11/05/17 CT HEAD/FACE/CERVICAL WO PROCEDURE: CT head, face, and cervical spine without contrast. TECHNIQUE: Multiple contiguous axial images were obtained through the head, neck, and facial bones without the use of intravenous contrast. Sagittal and coronal reformations through the cervical spine and facial bones were also performed. INDICATION: Trauma, fall off of porch. COMPARISON: CT head and C-spine from 10/24/2015. FINDINGS: CT head: No hyperdense hemorrhage or space-occupying mass. No hydrocephalus or midline shift. Hyperdensity along the posterior falx is compatible with the intravenous blood products. Basilar cisterns are widely patent. No acute skull fracture. Paranasal sinuses and mastoid air cells are clear. CT face: No acute fracture of the osseous nasal pyramid. Anterior nasal spine is intact. No fracture of the maxillary sinus ibarra or zygomatic arches. Pterygoid plates are intact. Paranasal sinuses are clear with the exception of small mucous retention cyst in the maxillary sinus and right sphenoid sinus. The temporomandibular joints are normal in alignment. There is no mandibular fracture. No evidence of soft tissue injury within the orbits. CT cervical spine: Examination is mildly limited due to motion artifact and patient's body habitus, which results in artifact near the cervicothoracic junction. Allowing for this, no acute fracture or traumatic malalignment is identified. No high-grade spinal stenosis by CT. Multilevel facet osteoarthritis results in varying degrees of foraminal narrowing. No cervical lymphadenopathy. IMPRESSION: 1. No acute intracranial hemorrhage or skull fracture. 2. No acute fracture of the mid face or mandible. 3. No acute fracture or traumatic malalignment in the cervical spine. Dictated by: Dictated on workstation # [id number] Dict: 11/05/17 0757 Trans: 11/05/17925 Interpreted by: DAVID LAFLEUR MD Electronically signed by: DAVID LAFLEUR MD 11/05/17925 Diagonstic Imaging: Xray Plain Films/CT/US/NM/MRI: chest Comments NAME: CHACHO CHEN MED REC#: [id number] PT STATUS: REG ER : 1970 PHYSICIAN: VICTORINO SANTAMARIA MD ADMIT DATE: 11/05/17/ER Signed Date of Exam: 11/05/17 CHEST 1 VIEW, AP/PA ONLY Indication: Chest pain after fall from porch. Comparison: CT chest performed earlier same day. Findings: No focal airspace disease in the visualized lungs. Please note that the posterior lower lobes are poorly evaluated by portable radiography. No pleural effusion or pneumothorax. Normal cardiomediastinal silhouette. Impression: No acute cardiopulmonary process by portable radiography. Dictated by: Dictated on workstation # [id number] Dict: 11/05/17 08 Trans: 11/05/17802 Interpreted by: DAVID LAFLEUR MD Electronically signed by: DAVID LAFLEUR MD 11/05/17802 Diagonstic Imaging: CT Plain Films/CT/US/NM/MRI: other (thoracolumbar spine) Comments NAME: CHACHO CHEN [facility] REC#: [id number] PT STATUS: DEP ER : 1970 PHYSICIAN: VICTORINO SANTAMARIA MD ADMIT DATE: 11/05/17/ER Signed Date of Exam: 11/05/17 CT THORACIC/LUMBAR SPINE WO TECHNIQUE: Unenhanced CT imaging of the thoracic and lumbar spine is performed. Sagittal and coronal reformats are created and submitted for interpretation. INDICATION: Trauma, fall off of porch. COMPARISON: CT abdomen and pelvis performed concurrently. FINDINGS: Thoracic spine: No acute fracture or traumatic malalignment in the thoracic spine. No high-grade spinal canal narrowing in the thoracic spine. No evidence of traumatic disc herniation. Posterior ribs are intact. Lumbar spine: No acute fracture or traumatic malalignment of the lumbar spine. Degenerative disc disease at L5-S1 has near complete height loss and severe sclerosis. SI joints are normal. No sacral fracture. IMPRESSION: No acute fracture or traumatic malalignment in the thoracic or lumbar spine. Dictated by: Dictated on workstation # [id number] Dict: 11/05/17 075 Trans: 11/05/17926 Interpreted by: DAVID LAFLEUR MD Electronically signed by: DAVID LAFLEUR MD 11/05/17926 Departure Impression Primary Impression: Fall Qualified Codes: W19.XXXA - Unspecified fall, initial encounter Additional Impressions: Laceration of lip Qualified Codes: S01.511A - Laceration without foreign body of lip, initial encounter Laceration of nose Qualified Codes: S01.21XA - Laceration without foreign body of nose, initial encounter Lower back pain Qualified Codes: M54.5 - Low back pain Chest wall pain Abdominal wall pain Disposition: 01 HOME, SELF-CARE Condition: Improved Departure-Patient Inst. Decision time for Depature: 08:50 Referrals: [facility] (PCP/Family) Primary Care Physician Patient Instructions: Laceration Repair With Stitches (DC) Add. Discharge Instructions: Your imaging studies demonstrated no serious injuries. Keep your wounds clean and dry except for normal showering. Avoid disrupting the sutures. Have your sutures removed in 7 days. Return to the ER to have this performed. You may return sooner for wound checks if needed. Complete your antibiotics as prescribed. You may take ibuprofen up to 600 mg every 6 hours as needed for pain. Add Tylenol (acetaminophen) up to 1000 mg every 6 hours as needed for additional pain relief. Icing in 20 minute intervals to affected areas may help with reducing pain in the first couple of days. After that you may try gentle heat. Monitor your wounds for signs of infection such as increasing redness, increasing pain, puslike drainage, fever, etc. Return to care promptly if you notice these symptoms. All discharge instructions reviewed with patient and/or family. Voiced understanding. Scripts Sulfamethoxazole/Trimethoprim (Bactrim Ds Tablet) 1 Each Tablet 1 EACH PO BID, #6 TAB Prov: VICTORINO SANTAMARIA MD 11/05/17 Copy Copies To 1: JOSUÉ GARZA MD, JOSHUA T MD November 05, 2017 06:55
[2017-11-05] MEDS ORDERED: LIDOCAINE 1% INJ 20 ML 20 ML VIAL INJ ONE (07:00)
[2017-11-05 07:01] LABS: BASOPHILS % (AUTO) 0 % (0-10); EOSINOPHILS # (AUTO) 0.1 10^3/uL (0.0-0.3); EOSINOPHILS % (AUTO) 1 % (0-10); HEMATOCRIT 47 % (40-54); LYMPHOCYTES # (AUTO) 1.7 X 10^3 (1.0-4.0); LYMPHOCYTES % (AUTO) 26 % (12-44); MEAN CORPUSCULAR HEMOGLOBIN 32 PG (25-34); MEAN CORPUSCULAR HGB CONC 34 G/DL (32-36); MEAN CORPUSCULAR VOLUME 92 FL (80-99); MEAN PLATELET VOLUME 11.1 FL (7.4-10.4); MONOCYTES # (AUTO) 0.5 X 10^3 (0.0-1.0); MONOCYTES % (AUTO) 8 % (0-12); NEUTROPHILS # (AUTO) 4.3 X 10^3 (1.8-7.8); NEUTROPHILS % (AUTO) 65 % (42-75); PLATELET COUNT 195 10^3/uL (130-400); RED BLOOD COUNT 5.06 10^6/uL (4.35-5.85); RED CELL DISTRIBUTION WIDTH 13.1 % (10.0-14.5); WHITE BLOOD COUNT 6.6 10^3/uL (4.3-11.0)
[2017-11-05 07:22] LABS: ALANINE AMINOTRANSFERASE 37 U/L (0-55); ALBUMIN 4.5 GM/DL (3.2-4.5); ALKALINE PHOSPHATASE 58 U/L (40-136); BILIRUBIN,TOTAL 1.5 MG/DL (0.1-1.0); BUN/CREATININE RATIO 21; CALCIUM 9.8 MG/DL (8.5-10.1); CARBON DIOXIDE 27 MMOL/L (21-32); CHLORIDE 106 MMOL/L (98-107); CREATININE SERUM 0.89 MG/DL (0.60-1.30); GFR ESTIMATED > 60; GLUCOSE 124 MG/DL (70-105); POTASSIUM 3.8 MMOL/L (3.6-5.0); SODIUM 144 MMOL/L (135-145); TOTAL PROTEIN 7.7 GM/DL (6.4-8.2)
--- NOTE | 2017-11-05 07:55 | Diagnostic Imaging Report ---
PROCEDURE: CT chest, abdomen, and pelvis with contrast. TECHNIQUE: Multiple contiguous axial images were obtained through the chest, abdomen, and pelvis after the administration of intravenous contrast. INDICATION: Abdominal pain after fall. Trauma. COMPARISON: None available. FINDINGS: Chest: Normal thyroid. No subclavicular axillary lymphadenopathy. No evidence of mediastinal hemorrhage. No mediastinal or hilar lymphadenopathy. Normal heart size without pericardial effusion. Normal caliber thoracic aorta without evidence of acute traumatic injury. No pleural effusion or pneumothorax. No pulmonary consolidations to indicate laceration or contusion. No acute rib fractures. <> Abdomen and pelvis: No free intraperitoneal air or fluid. The liver and spleen enhance normally without evidence of subcapsular hematoma or laceration. The adrenals, gallbladder and pancreas are normal. The kidneys enhance symmetrically without evidence of traumatic injury. Postcontrast imaging demonstrates opacification of normal caliber ureters and the urinary bladder without evidence of ureteral injury or bladder rupture. No dilated loops of bowel. Normal caliber bowel aorta without evidence of retroperitoneal hemorrhage. No abdominal or pelvic lymphadenopathy. No acute fracture of the pelvis or proximal femurs. IMPRESSION: 1. No acute traumatic injury in the chest, abdomen or pelvis. Dictated by: Dictated on workstation # [id number]
--- NOTE | 2017-11-05 08:03 | Diagnostic Imaging Report ---
CT THORACIC/LUMBAR SPINE WO TECHNIQUE: Unenhanced CT imaging of the thoracic and lumbar spine is performed. Sagittal and coronal reformats are created and submitted for interpretation. INDICATION: Trauma, fall off of porch. COMPARISON: CT abdomen and pelvis performed concurrently. FINDINGS: Thoracic spine: No acute fracture or traumatic malalignment in the thoracic spine. No high-grade spinal canal narrowing in the thoracic spine. No evidence of traumatic disc herniation. Posterior ribs are intact. Lumbar spine: No acute fracture or traumatic malalignment of the lumbar spine. Degenerative disc disease at L5-S1 has near complete height loss and severe sclerosis. SI joints are normal. No sacral fracture. IMPRESSION: No acute fracture or traumatic malalignment in the thoracic or lumbar spine. Dictated by: Dictated on workstation # [id number]
--- NOTE | 2017-11-05 08:06 | Diagnostic Imaging Report ---
CHEST 1 VIEW, AP/PA ONLY Indication: Chest pain after fall from porch. Comparison: CT chest performed earlier same day. Findings: No focal airspace disease in the visualized lungs. Please note that the posterior lower lobes are poorly evaluated by portable radiography. No pleural effusion or pneumothorax. Normal cardiomediastinal silhouette. Impression: No acute cardiopulmonary process by portable radiography. Dictated by: Dictated on workstation # [id number]
--- NOTE | 2017-11-05 08:07 | Diagnostic Imaging Report ---
PROCEDURE: CT head, face, and cervical spine without contrast. TECHNIQUE: Multiple contiguous axial images were obtained through the head, neck, and facial bones without the use of intravenous contrast. Sagittal and coronal reformations through the cervical spine and facial bones were also performed. INDICATION: Trauma, fall off of porch. COMPARISON: CT head and C-spine from 10/24/2015. FINDINGS: CT head: No hyperdense hemorrhage or space-occupying mass. No hydrocephalus or midline shift. Hyperdensity along the posterior falx is compatible with the intravenous blood products. Basilar cisterns are widely patent. No acute skull fracture. Paranasal sinuses and mastoid air cells are clear. CT face: No acute fracture of the osseous nasal pyramid. Anterior nasal spine is intact. No fracture of the maxillary sinus ibarra or zygomatic arches. Pterygoid plates are intact. Paranasal sinuses are clear with the exception of small mucous retention cyst in the maxillary sinus and right sphenoid sinus. The temporomandibular joints are normal in alignment. There is no mandibular fracture. No evidence of soft tissue injury within the orbits. CT cervical spine: Examination is mildly limited due to motion artifact and patient's body habitus, which results in artifact near the cervicothoracic junction. Allowing for this, no acute fracture or traumatic malalignment is identified. No high-grade spinal stenosis by CT. Multilevel facet osteoarthritis results in varying degrees of foraminal narrowing. No cervical lymphadenopathy. IMPRESSION: 1. No acute intracranial hemorrhage or skull fracture. 2. No acute fracture of the mid face or mandible. 3. No acute fracture or traumatic malalignment in the cervical spine. Dictated by: Dictated on workstation # [id number]
[2017-11-05] MEDS ORDERED: SULF1TAB35 PO (08:59)
[2017-11-05] MEDS ORDERED: TRIM/SULFAMETH 160/800 (SEPTRA DS) TAB PO ONE (09:00)
[2017-11-05 09:26] VITALS: BP 154/94
--- OUTSIDE RECORDS SUMMARY | 2017-11-05 10:12 | XMS REPORT ---
Author Author DEMAR CROWE Organization [facility] Address [address] [place] [address] Care Team Providers Care Radio Frequency Technician Name Role Phone DEMAR CROWE Unavailable PROBLEMS Type Condition ICD9-CM Code RNH63-AM Code Onset Dates Condition Status SNOMED Code Problem Anxiety F41.9 Active 66663182 Problem Neuropathy G62.9 Active [id number] ALLERGIES No Known Allergies ENCOUNTERS Encounter Location Date Diagnosis [place] [id number] [place] [address] Aug, Anxiety F41.9 [place] [address] [address] Jun, Pharyngitis due to other organism J02.8 [place] [id number] [place] [address] 39[address]- 4245 Mar, Acute non-recurrent frontal sinusitis J01.10 [place] [id number] [place] [address]- 5042 Dec, Neuropathy G62.9 [facility] [id number] [place] [address] 94676- 9163 Jul, [facility] [id number] [place] [address] 67249- 0148 Jul, Eustachian tube dysfunction, right H69.81 [facility] [id number] [place] [address]51- 7100 May, Acute non-recurrent maxillary sinusitis J01.00 [place] [id number] [place] [address]- 7[address] Feb, Sinusitis, unspecified chronicity, unspecified location J32.9 [facility] [address] [facility] [id number] [place] [address] Dec, [facility] [id number] [place] [address], [place] [address] Dec, [facility] [address] [address] October, Acute left-sided low back pain without sciatica M54.5 [facility] [address] [address] Aug, [facility] [id number] [place] [address], [place] [address] Aug, Allergic rhinitis J30.9 [facility] [address] [address] Aug, Allergic rhinitis J30.9 [facility] [id number] [place] [address] 62458- [address] Apr, [facility] [address] [address] Nov, [facility] [address] [address] Nov, [facility] [address] [address] October, [facility] [address] [address] October, [facility] [id number] [address] 14 Sep, 2014 [facility] [id number] [address] Sep, [facility] [address] [address] Apr, [facility] [address] [address] Feb, [facility] [place] [facility] [address] [id number] [place] [address] Feb, [facility] [place] [facility] [address] [id number] [place] [address]- 0[address] Jan, [facility] [place] [facility] [address] [id number] [place] [address]- 7029 Jan, [facility] [place] [facility] [address] [id number] [place] [address]- 4252 Jan, [facility] [place] [facility] [address] [id number] [place] [address]- 3795 Jan, [facility] [place] [facility] [address] [id number] [place] [address]- 2082 Jan, [facility] [place] [facility] [address] [id number] [place] [address]- 5025 Sep, [facility] [place] [facility] [address] [id number] [place] [address]- 8253 Sep, [facility] [place] [facility] [address] [id number] [place] [address]- 4556 May, [facility] [place] [facility] [address] [id number] [place] [address]- 7486 May, [facility] [place] [facility] [address] [id number] [address]37 Apr, [facility] [place] [facility] [address] [id number], [place] [address] 9215 Apr, [facility] [place] [facility] [address] [id number] [place] [address]- 5067 Apr, [facility] [place] [facility] [address] [id number] [place] [address]- 0657 Mar, [facility] [place] [facility] [address] [id number] [place] [address]- 5863 Mar, [facility] [place] [facility] [address] [id number] [place] [address]- 2815 Mar, [facility] [address] [id number] [place] [address]- 4650 Mar, [facility] [place] [facility] [address] [id number] [place] [address]- 3164 Jan, [facility] [address] [id number] [place] [address]- 1244 Jan, [facility] [place] [facility] [address] [id number] [place] [address]- 2659 Jan, [facility] [address] [id number] [place] [address]- 7435 Jan, [facility] [place] [facility] [address] [id number] [place] [address]- 7767 Dec, [facility] [address] [id number] [place] [address]- 8802 Sep, [facility] [address] [id number] [place] [address]- 8027 Sep, [facility] [address] [id number] [place] [address]- 6568 Aug, [facility] [address] [id number] [place] [address]- 3316 Jul, [facility] [place] [facility] [address] [id number] [place] [address]- 1245 Jul, [facility] [place] [facility] [address] [id number] [place] [address]- 1252 Jul, [facility] [place] [facility] [address] [id number] [place] [address]- 6567 Jul, [facility] [place] [facility] [address] [id number] [place] [address]- 7905 Mar, [facility] [place] [facility] [address] [id number] [place] [address] Mar, [facility] [address] [id number] [place] [address]- [address] Mar, [facility] [place] [facility] [address] [id number] [place] [address]- 3241 Mar, [facility] [place] [facility] [address] [id number] [place] [address]- 4187 Mar, [facility] [place] [facility] [address] [id number] [place] [address]- 3921 Dec, [facility] [place] [facility] [address] [id number] [place] [address]- 3440 October, [facility] [place] [facility] [address] [id number] [place] [address]- 9566 Sep, [facility] [place] [facility] [address] [id number] [place] [address]- 7718 Aug, [facility] [place] [facility] [address] [id number] [place] [address]- 9129 Jun, [facility] [place] [facility] [address] [id number] [place] [address]- 3429 Jun, [facility] [place] [facility] [address] [id number], [place] [address]- [address] May, [facility] [place] [facility] [address] [id number] [place] [address]- 9927 Jan, [facility] [place] [facility] [address] [id number], [place] [address]- 0649 Dec, [facility] [place] [facility] [address] [id number] [place] [address]- 1960 Jun, [facility] [place] [facility] [address] [id number] [place] [address]- 9396 May, [facility] [place] [facility] [address] [id number], [place] [address]- 18[address] May, [facility] [place] [facility] [address] [id number], [place] [address]- 2546 May, [facility] [address] [facility] [id number] [place] [address]- 2546 Sep, IMMUNIZATIONS No Known Immunizations SOCIAL HISTORY Never Assessed REASON FOR VISIT Pain feet - Neuropathy and Gout. Stands on concrete working 10-12 hours per day. He would like to re-start the Neurontin as he has been off of it for some time. He knows this works and just wants it refilled. - Colleen RILEY PLAN OF CARE Activity Details Follow Up 6 Months Reason: VITAL SIGNS Height 67 in 2017-01-11 Weight 286.4 lbs 2017-01-11 Temperature 98.0 degrees Fahrenheit 2017-01-11 Heart Rate 84 bpm 2017-01-11 Respiratory Rate 20 2017-01-11 BMI 44.85 kg/m2 2017-01-11 Blood pressure systolic 150 mmHg 2017-01-11 Blood pressure diastolic 78 mmHg 2017-01-11 MEDICATIONS Medication Instructions Dosage Frequency Start Date End Date Duration Status Neurontin 300 MG Orally Once a day 1 capsule 24h 30 Active RESULTS No Results PROCEDURES No Known procedures INSTRUCTIONS MEDICATIONS ADMINISTERED No Known Medications MEDICAL (GENERAL) HISTORY Type Description Date Medical History Arthritis Medical History Neuropathy Medical History Gout Surgical History Hernia repair x 2 2005 Surgical History Tubes in ears x2 8 yo Hospitalization History Surgery Hospitalization History MRSA 2009
--- OUTSIDE RECORDS SUMMARY | 2017-11-05 10:12 | XMS REPORT ---
Author Author DEMAR CROWE Organization [facility] Address [address] [place] [address] Care Team Providers Care Respiratory Therapist Assistant Name Role Phone DEMAR CROWE Unavailable PROBLEMS Type Condition ICD9-CM Code IEL83-EQ Code Onset Dates Condition Status SNOMED Code Problem Neuropathy G62.9 Active [id number] ALLERGIES No Known Allergies SOCIAL HISTORY Never Assessed PLAN OF CARE Activity Details Follow Up prn Reason: VITAL SIGNS Height 67 in 2016 Weight 283.5 lbs 2016 Temperature 97.6 degrees Fahrenheit 2016 Heart Rate 76 bpm 2016 Respiratory Rate 20 2016 BMI 44.40 kg/m2 2016 Blood pressure systolic 130 mmHg 2016 Blood pressure diastolic 80 mmHg 2016 MEDICATIONS Medication Instructions Dosage Frequency Start Date End Date Duration Status Neurontin 300 MG Orally Once a day 1 capsule 24h 30 Active Pseudoephedrine HCl 60 mg Orally every 6 hrs 1 tablet as needed 6h Jul, Active Benadryl 25 MG Orally every 6 hrs 1 capsule as needed 6h Active Amoxicillin 500 MG Orally 3 times a day 1 capsule 8h Jul, Jul, 05 days Active RESULTS No Results PROCEDURES No Known procedures IMMUNIZATIONS No Known Immunizations MEDICAL (GENERAL) HISTORY Type Description Date Medical History Arthritis Medical History Neuropathy Medical History Gout Surgical History Hernia repair x 2 2005 Surgical History Tubes in ears x2 8 yoa Hospitalization History Surgery Hospitalization History MRSA 2009
--- OUTSIDE RECORDS SUMMARY | 2017-11-05 10:13 | XMS REPORT ---
Author Author KAYLEY ARVIZU Organization [facility] Address [address] [place] [address] Care Team Providers Care Cage Tender Name Role Phone ARVIZUKAYLEY Taylor Unavailable PROBLEMS Type Condition ICD9-CM Code FET68-UL Code Onset Dates Condition Status SNOMED Code Problem Neuropathy G62.9 Active [id number] ALLERGIES Substance Reaction Event Type Date Status N.K.D.A. Unknown Non Drug Allergy May, Unknown SOCIAL HISTORY No smoking Hx information available PLAN OF CARE Activity Details Follow Up prn Reason: VITAL SIGNS Height 67 in 2016-06-08 Weight 276 lbs 2016-06-08 Temperature 98.7 degrees Fahrenheit 2016-06-08 Heart Rate 70 bpm 2016-06-08 Respiratory Rate 20 2016-06-08 BMI 43.22 kg/m2 2016-06-08 Blood pressure systolic 118 mmHg 2016-06-08 Blood pressure diastolic 70 mmHg 2016-06-08 MEDICATIONS Medication Instructions Dosage Frequency Start Date End Date Duration Status Naproxen 500 MG Orally every 12 hrs 1 tablet as needed 12h Active Augmentin 875-125 MG Orally every 12 hrs 1 tablet 12h May, 2 Jun, 2016 10 day(s) Active RESULTS No Results PROCEDURES Procedure Date Ordered Related Diagnosis Body Site Office Visit, Est Pt., Level 3 Jun 08, 2016 IMMUNIZATIONS No Known Immunizations
--- OUTSIDE RECORDS SUMMARY | 2017-11-05 10:13 | XMS REPORT ---
Author Author DEMAR CROWE [facility] Address [address] [place] [address] Care Team Providers Care Oil Expert Name Role Phone DEMAR CROWE Unavailable PROBLEMS Type Condition ICD9-CM Code [id number] Code Onset Dates Condition Status SNOMED Code Problem Neuropathy G62.9 Active [id number] ALLERGIES No Known Allergies SOCIAL HISTORY No smoking Hx information available PLAN OF CARE VITAL SIGNS MEDICATIONS No Known Medications RESULTS No Results PROCEDURES No Known procedures IMMUNIZATIONS No Known Immunizations
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
== END 2017-11-05 09:26 | disposition home or self-care (01) ==
LOC: EDUNIT# 06:31 → ER 06:34
DX: S01.511A Laceration without foreign body of lip, initial encounter (principal); S01.21XA Laceration without foreign body of nose, initial encounter; M54.5 Low back pain; R07.89 Other chest pain; R40.2142 Coma scale, eyes open, spontaneous, at arrival to emergency department; R40.2252 Coma scale, best verbal response, oriented, at arrival to emergency department; R40.2362 Coma scale, best motor response, obeys commands, at arrival to emergency department; M10.9 Gout, unspecified; G47.30 Sleep apnea, unspecified; Z23 Encounter for immunization; Z87.19 Personal history of other diseases of the digestive system; W13.8XXA Fall from, out of or through other building or structure, initial encounter; W22.09XA Striking against other stationary object, initial encounter
CPT/HCPCS: 12011; 36415; 70450; 70486; 71045; 71260; 72125; 72128; 72131; 74177; 80053; 80320; 85025; 90471; 90715; 96374; 96376

== ENCOUNTER 2017-11-12 15:24 | Emergency (ER) | payer SELFPAY ==
[~2017-11-12] VITALS: Ht 170.2 cm; Wt 120.2 kg
[2017-11-12 15:47] VITALS: BP 130/64
== END 2017-11-12 15:48 | disposition home or self-care (01) ==
LOC: EDUNIT# 15:24 → ER 15:26
DX: S01.21XD Laceration without foreign body of nose, subsequent encounter (principal); S01.511D Laceration without foreign body of lip, subsequent encounter; X58.XXXD Exposure to other specified factors, subsequent encounter

== ENCOUNTER 2018-02-14 05:29 | Outpatient (CLI) | payer OTHER ==
[~2018-02-14] VITALS: Ht 167.6 cm; Wt 119.3 kg
[2018-02-20] MEDS ORDERED: DOCU-143 PO (10:37)
[2018-02-20] MEDS ORDERED: ACHD5005 PO (10:37)
== END 2018-02-14 12:53 | disposition home or self-care (01) ==
LOC: PREOP 05:29
PROVIDERS: ATTEND Surgery
DX: Z01.818 Encounter for other preprocedural examination (principal)

== ENCOUNTER 2018-02-20 08:14 | Day surgery (SDC) | payer OTHER ==
[~2018-02-20] VITALS: Ht 167.6 cm; Wt 119.3 kg
[2018-02-20] MEDS ORDERED: ceFAZolin 2 GM IV Premixed 50 ML IV ONE (08:45)
[2018-02-20 08:54] VITALS: BP 124/79
[2018-02-20] MEDS: LACTATED RINGERS 1,000 ML IV PRN ×2 (09:01→10:05)
[2018-02-20] MEDS ORDERED: fentaNYL INJECTION 100 MCG/2 ML AMP ONE (09:02)
[2018-02-20] MEDS ORDERED: LACTATED RINGERS 1,000 ML IV ONE (09:02)
[2018-02-20] MEDS ORDERED: proPOfol 200 MG/20 ML (DIPRIVAN) VIAL IV ONE (09:02)
[2018-02-20] MEDS ORDERED: SEVOFLURANE (ULTANE) 15 ML INHAL SOLN ONE ×2 (09:02→10:33)
[2018-02-20] MEDS ORDERED: LIDOCAINE PF 2% 5 ML (XYLOCAINE) VIAL ONE (09:02)
[2018-02-20] MEDS ORDERED: ROCURONIUM 10 MG/ML 5 ML SYRINGE IV ONE (09:02)
[2018-02-20] MEDS ORDERED: MIDAZOLAM 2 MG/2 ML (VERSED) VIAL ONE (09:03)
[2018-02-20] MEDS ORDERED: BUPIVACAINE 0.5% 30 ML (SENSORCAINE) VIAL ONE (09:09)
[2018-02-20] MEDS ORDERED: LIDOCAINE 1% INJ 20 ML 20 ML VIAL ONE (09:09)
--- NOTE | 2018-02-20 09:49 | Progress Note-Pre Operative ---
Pre-Operative Progress Note H&P Reviewed The H&P was reviewed, patient examined and no changes noted. Date Seen by Provider: Feb 20, 2018 Time Seen by Provider: 09:35 Date H&P Reviewed: Feb 20, 2018 Time H&P Reviewed: 09:35 Pre-Operative Diagnosis: ruq abdominal pain, gallbaldder polyp ROSEMARIE REINA DO Feb 20, 2018 09:49
--- OUTSIDE RECORDS SUMMARY | 2018-02-20 09:50 | XMS REPORT ---
Author Author JOSE CASTRO Organization [facility] Address [address] [place] [address] Care Team Providers Care Inside Sales Supervisor Name Role Phone JOSE CASTRO Unavailable PROBLEMS Type Condition ICD9-CM Code CWC55-XI Code Onset Dates Condition Status SNOMED Code Problem Anxiety F41.9 Active [id number] Problem Neuropathy G62.9 Active [id number] ALLERGIES No Known Allergies ENCOUNTERS Encounter Location Date Diagnosis [place] [address] [address] Aug, Anxiety F41.9 [place] [address] [address] Jun, Pharyngitis due to other organism J02.8 [place] [address] [address] Mar, Acute non-recurrent frontal sinusitis J01.10 [place] [address] [place] [id number] [place] [address] Dec, Neuropathy G62.9 [place] [address] [address] Jul, [place] [address] [address] Jul, Eustachian tube dysfunction, right H69.81 [place] [address] [address] May, Acute non-recurrent maxillary sinusitis J01.00 [place] [address] [place] [id number] [place] [address] Feb, Sinusitis, unspecified chronicity, unspecified location J32.9 [place] [address] [facility] [id number] [address] Dec, [facility] [address] [facility] [id number] [place] [address] Dec, [facility] [address] [facility] [id number] [place] [address] October, Acute left-sided low back pain without sciatica M54.5 [facility] [address] [facility] [id number] [place] [address] Aug, [facility] [address] [facility] [id number] [place] [address] Aug, Allergic rhinitis J30.9 [facility] [address] [facility] [id number] [place] [address] Aug, Allergic rhinitis J30.9 [facility] [id number] [address] Apr, [facility] [address] [facility] [id number] [place] [address] Nov, [facility] [id number] [place] [address] Nov, [facility] [address] [address] October, [facility] [id number] [place] [address] October, [facility] [address] [facility] [id number] [place] [address] 14 Sep, 2014 [facility] [address] [facility] [id number] [place] [address] Sep, [facility] [address] [facility] [id number] [place] [address] Apr, [facility] [address] [address] Feb, [facility] [place] [facility] [address] [id number] [place] [address] Feb, [facility] [place] [facility] [address] [id number] [place] [address] Jan, [facility] [place] [facility] [address] [id number] [place] [address] Jan, [facility] [place] [facility] [address] [id number] [place] [address] Jan, [facility] [place] [facility] [address] [id number] [place] [address] Jan, [facility] [place] [facility] [address] [id number] [place] [address] Jan, [facility] [place] [facility] [address] [id number] [place] [address] Sep, [facility] [place] [facility] [address] [id number] [place] [address] Sep, [facility] [place] [facility] [address] [id number] [place] [address] May, [facility] [place] [facility] [address] [id number] [place] [address] May, [facility] [place] [facility] [address] [id number] [place] [address] Apr, [facility] [place] [facility] [address] [id number] [place] [address] Apr, [facility] [place] [facility] [address] [id number] [place] [address] Apr, [facility] [place] [facility] [address] [id number] [place] [address] Mar, [facility] [place] [facility] [address] [id number] [place] [address] Mar, [facility] [place] [facility] [address] [id number] [place] [address] Mar, [facility] [address] [id number] [place] [address] Mar, [facility] [place] [facility] [address] [id number] [place] [address] Jan, [facility] [address] [id number] [place] [address] Jan, [facility] [place] [facility] [address] [id number] [place] [address] Jan, [facility] [address] [id number] [place] [address] Jan, [facility] [address] [id number] [place] [address] Dec, [facility] [address] [facility] [id number] [place] [address] Sep, [facility] [place] [facility] [address] [id number] [place] [address] Sep, [facility] [address] [facility] [id number] [place] [address] Aug, [facility] [address] [facility] [id number] [place] [address] Jul, [facility] [address] [id number] [place] [address] Jul, [facility] [place] [facility] [address] [id number] [place] [address] Jul, [facility] [place] [facility] [address] [id number] [place] [address] Jul, [facility] [place] [facility] [address] [id number] [place] [address] Mar, [facility] [place] [facility] [address] [id number] [place] [address]- [address] Mar, [facility] [place] [facility] [address] [id number] [place] [address] Mar, [facility] [place] [facility] [address] [id number] [place] [address] Mar, [facility] [place] [facility] [address] [id number] [place] [address] Mar, [facility] [place] [facility] [address] [id number] [place] [address]- [address] Dec, [facility] [place] [facility] [address] [id number] [place] [address] October, [facility] [place] [facility] [address] [id number] [place] [address]- [address] Sep, [facility] [place] [facility] [address] [id number] [place] [address] Aug, [facility] [place] [facility] [address] [id number] [place] [address]- [address] Jun, [facility] [place] [facility] [address] [id number] [place] [address]- [address] Jun, [facility] [address] [id number] [place] [address]- [address] May, [facility] [place] [facility] [address] [id number] [place] [address] Jan, [facility] [place] [facility] [address] [id number] [place] [address]- [address] Dec, [facility] [place] [facility] [address] [id number] [place] [address]- [address] Jun, [facility] [place] [facility] [address] [id number] [place] [address] May, [facility] [place] [facility] [address] [id number] [place] [address]- [address] May, [facility] [place] [facility] [address] [id number] [place] [address] May, [facility] [address] [facility] [id number] [place] [address] Sep, IMMUNIZATIONS No Known Immunizations SOCIAL HISTORY Never Assessed REASON FOR VISIT sean TONJA f/u from august 23, elevated heart rate and BP with Fam [facility] PLAN OF CARE VITAL SIGNS Height 67 in 2017-08-26 Weight 257.4 lbs 2017-08-26 Temperature 98.1 degrees Fahrenheit 2017-08-26 Heart Rate 76 bpm 2017-08-26 Respiratory Rate 20 2017-08-26 BMI 40.31 kg/m2 2017-08-26 Blood pressure systolic 118 mmHg 2017-08-26 Blood pressure diastolic 76 mmHg 2017-08-26 MEDICATIONS Medication Instructions Dosage Frequency Start Date End Date Duration Status Loratadine 10 MG Orally Once a day 1 tablet 24h May, Active Paroxetine HCl 20 mg Orally Once a day 1 tablet in the morning 24h Aug, 30 day(s) Active Benadryl 25 MG Orally every 6 hrs 1 capsule as needed 6h Not- Taking Neurontin 300 MG Orally Once a day [...]
--- OUTSIDE RECORDS SUMMARY | 2018-02-20 09:50 | XMS REPORT ---
Author Author JOSE CASTRO Organization [facility] Address [address] [place] [address] Care Team Providers Care Director Advanced Name Role Phone JOSE CASTRO Unavailable PROBLEMS Type Condition ICD9-CM Code IIL94-DA Code Onset Dates Condition Status SNOMED Code Problem Anxiety F41.9 Active 70911360 Problem Neuropathy G62.9 Active [id number] ALLERGIES No Known Allergies ENCOUNTERS Encounter Location Date Diagnosis [place] [address] [address] Aug, Anxiety F41.9 [place] [address] [address] Jun, Pharyngitis due to other organism J02.8 [place] [address] [address] Mar, Acute non-recurrent frontal sinusitis J01.10 [place] [address] [address] [place] [id number] [place] [address] Dec, Neuropathy G62.9 [place] [address] [address] Jul, [place] [address] [address] Jul, Eustachian tube dysfunction, right H69.81 [place] [address] [address] May, Acute non-recurrent maxillary sinusitis J01.00 [place] [address] [address] [place] [id number] [place] [address] Feb, Sinusitis, unspecified chronicity, unspecified location J32.9 [place] [address] [address] [facility] [id number] [place] [address] Dec, [facility] [address] [facility] [id number] [place] [address] Dec, [facility] [address] [facility] [id number] [place] [address] October, Acute left-sided low back pain without sciatica M54.5 [facility] [address] [facility] [id number] [place] [address] Aug, [facility] [address] [facility] [id number] [place] [address] Aug, Allergic rhinitis J30.9 [facility] [address] [facility] [id number] [place] [address] Aug, Allergic rhinitis J30.9 [facility] [id number] [address] Apr, [facility] [address] [facility] [id number] [place] [address] Nov, [facility] [address] [place] [address] Nov, [facility] [id number] [address] October, [facility] [id number] [place] [address] October, [facility] [address] [facility] [id number] [place] [address] 14 Sep, 2014 [facility] [address] [facility] [id number] [place] [address] Sep, [facility] [address] [facility] [id number] [place] [address] Apr, [facility] [address] [address] Feb, [facility] [place] [facility] [address] [id number] [place] [address] Feb, [facility] [place] [facility] [address] [id number] [place] [address] Jan, [facility] [place] [facility] [address] [id number] [place] [address] Jan, [facility] [place] [facility] [address] [id number] [place] [address] Jan, [facility] [place] [facility] [address] [id number] [place] [address] Jan, [facility] [place] [facility] [address] [id number] [place] [address] Jan, [facility] [place] [facility] [address] [id number] [place] [address] Sep, [facility] [place] [facility] [address] [id number] [place] [address] Sep, [facility] [place] [facility] [address] [id number] [place] [address] May, [facility] [place] [facility] [address] [id number] [place] [address] May, [facility] [place] [facility] [address] [id number] [place] [address] Apr, [facility] [place] [facility] [address] [id number] [place] [address] Apr, [facility] [place] [facility] [address] [id number] [place] [address] Apr, [facility] [place] [facility] [address] [id number] [place] [address] Mar, [facility] [place] [facility] [address] [id number] [place] [address] Mar, [facility] [place] [facility] [address] [id number] [place] [address] Mar, [facility] [address] [id number] [place] [address] Mar, [facility] [place] [facility] [address] [id number] [place] [address] Jan, [facility] [address] [id number] [place] [address] Jan, [facility] [place] [facility] [address] [id number] [place] [address] Jan, [facility] [address] [id number] [place] [address] Jan, [facility] [address] [id number] [place] [address] Dec, [facility] [address] [facility] [id number] [place] [address] Sep, [facility] [place] [facility] [address] [id number] [place] [address] Sep, [facility] [address] [facility] [id number] [place] [address] Aug, [facility] [address] [facility] [id number] [place] [address] Jul, [facility] [address] [id number] [place] [address] Jul, [facility] [place] [facility] [address] [id number] [place] [address] Jul, [facility] [place] [facility] [address] [id number] [place] [address] Jul, [facility] [place] [facility] [address] [id number] [place] [address] Mar, [facility] [place] [facility] [address] [id number] [place] [address] Mar, [facility] [place] [facility] [address] [id number] [place] [address] Mar, [facility] [place] [facility] [address] [id number] [place] [address] Mar, [facility] [place] [facility] [address] [id number] [place] [address] Mar, [facility] [place] [facility] [address] [id number] [place] [address]- [address] Dec, [facility] [place] [facility] [address] [id number] [place] [address] October, [facility] [place] [facility] [address] [id number] [place] [address] Sep, [facility] [place] [facility] [address] [id number] [place] [address] Aug, [facility] [place] [facility] [address] [id number] [place] [address] Jun, [facility] [place] [facility] [address] [id number] [place] [address] Jun, [facility] [address] [id number] [place] [address]- [address] May, [facility] [place] [facility] [address] [id number] [place] [address]- [address] Jan, [facility] [place] [facility] [address] [id number] [place] [address] Dec, [facility] [place] [facility] [address] [id number] [place] [address] Jun, [facility] [place] [facility] [address] [id number] [place] [address] May, [facility] [place] [facility] [address] [id number] [place] [address]- [address] May, [facility] [place] [facility] [address] [id number] [place] [address] May, [facility] [address] [facility] [id number] [place] [address] Sep, IMMUNIZATIONS No Known Immunizations SOCIAL HISTORY Never Assessed REASON FOR VISIT Cough/Respiratory c/o-states he is cold, tired, coughing up clear phlem- Chika Carbajal RN PLAN OF CARE VITAL SIGNS Height 67 in 2017-07-04 Weight 256 lbs 2017-07-04 Temperature 98.1 degrees Fahrenheit 2017-07-04 Heart Rate 78 bpm 2017-07-04 Respiratory Rate 22 2017-07-04 BMI 40.09 kg/m2 2017-07-04 Blood pressure systolic 132 mmHg 2017-07-04 Blood pressure diastolic 82 mmHg 2017-07-04 MEDICATIONS Medication Instructions Dosage Frequency Start Date End Date Duration Status Neurontin 300 MG Orally Once a day 1 capsule 24h 30 Active Augmentin 875-125 MG Orally every 12 hrs 1 tablet 12h Jun,Jun 10 day(s) Active Benadryl 25 MG Orally every 6 hrs 1 capsule as needed 6h Active PredniSONE 20 mg Orally Once a day 2 tablets 24h Jun, Jun, 05 days Active Loratadine 10 MG Orally Once a day 1 tablet 24h May, Active RESULTS No Results PROCEDURES No Known procedures INSTRUCTIONS MEDICATIONS ADMINISTERED No Known Medications MEDICAL (GENERAL) HISTORY Type Description Date Medical History Arthritis Medical History Neuropathy Medical History Gout Surgical History Hernia repair x 2 2005 Surgical History Tubes in ears x2 8 yo Hospitalization History Surgery Hospitalization History MRSA 2009
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
[2018-02-20] MEDS ORDERED: DEXAMETHASONE 10 MG/ML (DECADRON) 1 ML VIAL ONE (10:12)
[2018-02-20] MEDS ORDERED: ONDANSETRON 4 MG/2 ML (SDV) Z0FRAN ONE ×2 (10:12→10:57)
[2018-02-20] MEDS ORDERED: NEOSTIGMINE 1 MG/ML 5 ML SYRINGE ONE (10:32)
[2018-02-20] MEDS ORDERED: GLYCOPYRROLATE 0.2 MG/ML (ROBINUL) 2 ML VIAL ONE (10:32)
[2018-02-20] MEDS ORDERED: DOCU-143 PO (10:37)
[2018-02-20] MEDS ORDERED: ACHD5005 PO (10:37)
--- NOTE | 2018-02-20 10:39 | Discharge Inst-Simple/Standard ---
Discharge Inst-Standard Discharge Medications New, Converted or Re-Newed RX: RX on Chart Patient Instructions/Follow Up Plan of Care/Instructions/FU: 2 weeks Gregory Activity as Tolerated: No Discharge Diet: Regular Diet Other Inst to Patient Follow up Appt: Make appointment for 2 weeks. Instructions: No lifting greater than 10 pounds. No strenuous activity. May shower in 24 hours, no tub bath or soaking. Use incentive spirometer at home as directed. No Smoking Skin/Wound Care: You have special glue over incision it will fall off on its own. Symptoms to Report: Appetite Changes, Extremity Discoloration, Numbness/Tingling, Swelling Increased , Bleeding Excessive, Eyesight Changes, Pain Increased, Urine Color Change, Constipation(Persistent), Fever over 101 degree F, Pain/Pressure in chest, Urinating Difficulty, Cough Up/Vomit Blood, Heart Beat Irreg/Pounding, Pain/ Pressure in jaw, Vaginal Bleeding Increase, Cramps in feet or legs, Lightheadedness, Pain/Pressure in shoulder, Diarrhea(Persistent), Memory Changes Suddenly, Questions/Concerns, Weight gain consecutive days, Dizziness/ Fainting, Nausea/Vomiting, Shortness of Breath, Weight gain over 2 pounds. If eyes or skin turn yellow notify physician. If questions or concerns contact your physician Or seek help at emergency department. ROSEMARIE REINA DO Feb 20, 2018 10:39
--- NOTE | 2018-02-20 10:41 | Progress Note-Post Operative ---
Post-Operative Progess Note Surgeon (s)/Substitute School Nurse (s) Surgeon ROSEMARIE REINA DO Substitute School Nurse: Dr. Casiano Pre-Operative Diagnosis ruq abdominal pain, gallbaldder polyp Post-Operative Diagnosis same Procedure & Operative Findings Date of Procedure 02/20/18 Procedure Performed/Findings lap nathaniel c ioc Anesthesia Type gen Estimated Blood Loss Estimated blood loss (mL): min Specimens/Packing Specimens Removed gallbladder ROSEMARIE REINA DO Feb 20, 2018 10:41
[2018-02-20] MEDS ORDERED: HYDROcodone/APAP 5 MG/325 MG (LORTAB) TAB PO PRN (10:45)
[2018-02-20] MEDS ORDERED: morphine INJ 10 MG/ML 1ML (SYR OR VIAL) ONE (10:57)
[2018-02-20] MEDS ORDERED: morphine INJ 10 MG/ML 1ML (SYR OR VIAL) IVP ONE (11:00)
[2018-02-20] MEDS ORDERED: HYDROmorphone 2 MG/ML VIAL (DILAUDID) IV ONE (11:00)
[2018-02-20] MEDS: ONDANSETRON 4 MG/2 ML (SDV) Z0FRAN IVP PRN ×2 (11:02→11:36)
--- NOTE | 2018-02-20 11:36 | Diagnostic Imaging Report ---
INDICATION: Fluoroscopy during intraoperative cholangiogram. Fluoroscopy was provided in the OR during intraoperative cholangiogram. 7 seconds of fluoroscopy was utilized. Images demonstrate contrast being injected via the cystic duct remnant. Intrahepatic and extra hepatic bile ducts are nondilated. No filling defects are seen to suggest retained stone. IMPRESSION: Fluoroscopy for intraoperative cholangiogram. Dictated by: Dictated on workstation # [id number]
[2018-02-20 11:55] VITALS: BP 128/81
[2018-02-20 12:20] VITALS: BP 128/81
[2018-02-20 12:25] VITALS: BP 125/78
--- NOTE | 2018-02-20 12:33 | Anesthesia-General Post-Op ---
General Patient Condition Mental Status/LOC: Same as Preop Cardiovascular: Satisfactory Nausea/Vomiting: Absent Respiratory: Satisfactory Pain: Controlled Complications: Absent Post Op Complications Complications None Follow Up Care/Instructions Patient Instructions None needed. Anesthesia/Patient Condition Patient Condition Patient is doing well, no complaints, stable vital signs, no apparent adverse anesthesia problems. No complications reported per nursing. D/C home per [facility] Criteria: Yes SARA MONDRAGON CRNA Feb 20, 2018 12:33
[2018-02-20 12:55] VITALS: BP 123/71
--- NOTE | 2018-02-21 13:04 | OPERATIVE REPORT ---
DATE OF SERVICE: 02/20/2018 PREOPERATIVE DIAGNOSES: Gallbladder polyp, right upper quadrant abdominal pain. POSTOPERATIVE DIAGNOSES: Gallbladder polyp, right upper quadrant abdominal pain. PROCEDURE: Laparoscopic cholecystectomy with intraoperative cholangiogram. SURGEON: Rosemarie Jenkins D.O. DYE WEIGHER: Dr. Casiano, assisted in retraction, dissection, and closure. ANESTHESIA: General. ESTIMATED BLOOD LOSS: Minimal. COMPLICATIONS: None. INDICATIONS: The patient is a 47-year-old male who has been having right upper quadrant abdominal pain. He had a gallbladder ultrasound that had a gallbladder polyp present within it. He understands risks and benefits of procedure and wished to proceed with procedure. Consent was signed on the chart. DESCRIPTION OF PROCEDURE: The patient was taken to the operating suite, was prepped and draped in sterile fashion. Surgical pause was performed. Milan technique was used to enter the abdomen just above the umbilicus. An 0-Vicryl suture was placed in a [id number] fashion on the fascia for closure at the end of the case. A balloon trocar was inserted in the abdomen and pneumoperitoneum was achieved. Under direct visualization of the laparoscope, a 5-mm trocar was placed in the subxiphoid region and two 5-mm trocars were placed in the right upper quadrant. Gallbladder was grasped and elevated. Adhesions to it were present. Also, upon the duodenum up to it, the gallbladder as well. This was then all bluntly taken down. The cystic duct and cystic artery were then dissected around. Clips were placed on the proximal and distal portion of the cystic artery and at this portion of the cystic duct had a clip placed as well. The duct was then partially transected. Arrow catheter was inserted into the duct and cholangiogram was performed. There were no filling defects. Contrast made its way into the duodenum. The Arrow catheter was then removed. Clips were placed on the proximal portion of the cystic duct and the duct and artery were then completely transected. Hook cautery was used to dissect the gallbladder fossa from the gallbladder fossa achieving hemostasis. Once removed, it was placed in an Endobag and removed through the 12-mm trocar site. The abdomen was irrigated with copious amounts of irrigation and suction. The abdomen was then desufflated. The trocars were removed. The 0-Vicryl suture was placed at the beginning of the case and was then tied, closing the fascial defect. The skin was then closed using 4-0 Monocryl in subcuticular fashion. The area was then washed and dried and Skin Affix was placed over the incisions. The patient tolerated the procedure well without any complications, taken to recovery room in stable condition. Job ID: [id number] DocumentID: [id number] Dictated Date: 02/21/2018 09:00:46 [employer]s And Footballs Reverser Date: 02/21/2018 09:22:15 Dictated By: ROSEMARIE JENKINS DO
== END 2018-02-20 12:20 | disposition home or self-care (01) ==
LOC: SDC 08:14
PROVIDERS: ATTEND Surgery
DX: K81.1 Chronic cholecystitis (principal); G47.33 Obstructive sleep apnea (adult) (pediatric); E66.01 Morbid (severe) obesity due to excess calories; Z68.41 Body mass index [BMI] 40.0-44.9, adult
CPT/HCPCS: 87081; 88304; 94664

== ENCOUNTER → 2018-04-10 | Outpatient (REF) ==
[~2018-04-10] MED LIST changes: +METH4TAB PO
--- NOTE | 2018-04-10 11:05 | Diagnostic Imaging Report ---
INDICATION: Right knee injury and popping. TIME OF EXAMINATION: 11:04 a.m. FINDINGS: Three views of the right knee demonstrate normal alignment. The joint spaces are well maintained. The articular surfaces are smooth. No fracture, dislocation or effusion is seen. IMPRESSION: No acute bony abnormality is detected. Dictated by: Dictated on workstation # [id number]
== END | disposition home or self-care (01) ==
LOC: OCC 10:20
PROVIDERS: ATTEND Nurse Practitioner Family
CPT/HCPCS: 73562

== ENCOUNTER 2018-04-23 01:59 | Emergency (ER) | payer OTHER ==
[~2018-04-23] VITALS: Ht 167.6 cm; Wt 124.7 kg
[~2018-04-23 01:59] MED LIST changes: -METH4TAB PO
--- OUTSIDE RECORDS SUMMARY | 2018-04-23 02:04 | XMS REPORT ---
Author Author DEMAR CROWE Organization [facility] Address [address] [place] [address] Care Team Providers Care Lozenge Dough Mixer Name Role Phone DEMAR CROWE Unavailable PROBLEMS Type Condition ICD9-CM Code SYM39-GW Code Onset Dates Condition Status SNOMED Code Problem Anxiety F41.9 Active 50904559 Problem Neuropathy G62.9 Active 140773799 ALLERGIES No Information ENCOUNTERS Encounter Location Date Diagnosis [place] [id number] [place] [address] Jan, Neuropathy G62.9 [place] [id number] [place] [address] Aug, Anxiety F41.9 [facility] [address] [address] Jun, Pharyngitis due to other organism J02.8 [place] [id number] [place] [address]- 1849 Mar, Acute non-recurrent frontal sinusitis J01.10 [place] [id number] [place] [address]- [address]74 Dec, [address]62.9 [facility] [id number] [place] [address] 18228- [address] Jul, [facility] [id number] [place] [address]- 9106 Jul, Eustachian tube dysfunction, right H69.81 [facility] [id number] [place] [address]- 2316 May, Acute non-recurrent maxillary sinusitis J01.00 [place] [id number] [address] Feb, Sinusitis, unspecified chronicity, unspecified location J32.9 [facility] [address] [address] Dec, [facility] [id number] [address] Dec, [facility] [id number] [place] [address]67- 3565 October, Acute left-sided low back pain without sciatica M54.5 [facility] [id number] [place] [address], [place] [address] Aug, [facility] [id number] [place] [address]- [address] Aug, Allergic rhinitis J30.9 [facility] [address] [place] [address]- [address] Aug, Allergic rhinitis J30.9 [facility] [address] [address] Apr, [facility] [address] [address] Nov, [facility] [address] [address] Nov, [facility] [address] [address] October, [facility] [id number] [address] October, [facility] [address], [place] [address] 14 Sep, 2014 [facility] [id number] [address] 13 Sep, 2014 [facility] [address] [address] Apr, [facility] [place] [facility] [address] [id number] [place] [address] Feb, [facility] [place] [facility] [address] [id number] [place] [address] Feb, [facility] [place] [facility] [address] [id number] [place] [address] Jan, [facility] [place] [facility] [address] [id number] [place] [address] 480[address] Jan, [facility] [place] [facility] [address] [id number] [place] [address] 4216 Jan, [facility] [place] [facility] [address] [id number] [place] [address] 384[address] Jan, [facility] [place] [facility] [address] [id number] [place] [address]- 1092 Jan, [facility] [place] [facility] [address] [id number] [place] [address] 8509 Sep, [facility] [place] [facility] [address] [id number] [place] [address] 4[address] Sep, [facility] [place] [facility] [address] [id number] [place] [address]- 7141 May, [facility] [place] [facility] [address] [id number], [place] [address] May, [facility] [place] [facility] [address] [id number], [place] [address] Apr, [facility] [place] [facility] [address] [id number] [place] [address]- 9416 Apr, [facility] [place] [facility] [address] [id number] [place] [address] 3941 Apr, [facility] [place] [facility] [address] [id number] [place] [address] Mar, [facility] [place] [facility] [address] [id number] [place] [address]- 0862 Mar, [facility] [address] [id number] [place] [address] 478[address] Mar, [facility] [address] [id number] [place] [address]- 8823 Mar, [facility] [address] [id number] [place] [address]- 8840 Jan, [facility] [address] [id number] [place] [address]- 3048 Jan, [facility] [address] [id number] [place] [address] Jan, [facility] [address] [id number] [place] [address]- 2690 Jan, [facility] [address] [id number] [place] [address]- 6090 Dec, [facility] [address] [id number] [place] [address]- 1697 Sep, [facility] [address] [id number] [place] [address]- 4061 Sep, [facility] [address] [id number] [place] [address]- 5331 Aug, [facility] [address] [id number] [place] [address]- 1364 Jul, [facility] [address] [id number] [place] [address]- 1374 Jul, [facility] [place] [facility] [address] [id number] [place] [address]- 6542 Jul, [facility] [address] [id number] [place] [address]- 2546 Jul, [facility] [address] [id number] [place] [address]- 0371 Mar, [facility] [place] [facility] [address] [id number] [place] [address]- 9964 Mar, [facility] [place] [facility] [address] [id number] [place] [address]- 4480 Mar, [facility] [place] [facility] [address] [id number] [place] [address]- 6165 Mar, [facility] [place] [facility] [address] [id number] [place] [address]- 9704 Mar, [facility] [place] [facility] [address] [id number] [place] [address]- 0646 Dec, [facility] [place] [facility] [address] [id number] [place] [address]- 67[address] October, [facility] [place] [facility] [address] [id number] [place] [address]- 7709 Sep, [facility] [place] [facility] [address] [id number] [place] [address]- 8942 Aug, [facility] [place] [facility] [address] [id number] [place] [address]- 2179 Jun, [facility] [place] [facility] [address] [id number], [place] [address]- [address] Jun, [facility] [place] [facility] [address] [id number], [place] [address]- 78[address] May, [facility] [place] [facility] [address] [id number], [place] [address]- [address] Jan, [facility] [place] [facility] [address] [id number] [place] [address]- 7101 Dec, [facility] [place] [facility] [address] [id number], [place] [address]- 6524 Jun, [facility] [place] [facility] [address] [id number] [place] [address]- 2663 May, [facility] [place] [facility] [address] [facility] [id number] [place] [address]- [address] 10 May, 2010 [facility] [address] [facility] [id number] [place] [address]- [address] May, [facility] [address] [facility] [id number] [place] [address]- 8695 Sep, IMMUNIZATIONS No Known Immunizations SOCIAL HISTORY Never Assessed REASON FOR VISIT PLAN OF CARE VITAL SIGNS MEDICATIONS Medication Instructions Dosage Frequency Start Date [...]
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
--- NOTE | 2018-04-23 02:19 | ED Lower Extremity ---
General Chief Complaint: Lower Extremity Stated Complaint: RT LEG PAIN Source: patient History of Present Illness Date Seen by Provider: Apr 23, 2018 Time Seen by Provider: 02:08 Initial Comments PT ARRIVES VIA POV FROM HOME C/O RIGHT KNEE PAIN STATES HE HURT HIS RIGHT KNEE AT WORK ON 04/03/18--STATES HE TWISTED HIS KNEE WHEN HE STEPPED WRONG ON A FORK LIFT PT HAD THE NEXT WEEK OFF, BEFORE HE WENT TO [facility] DID NOT SEEK CARE UNTIL 04/10 WHEN HE WENT TO [facility] AND SAW A CRM DEVELOPER THERE. STATES HE WAS RELEASED TO GO BACK TO WORK BY [facility] THAT DAY, AND HAS NOT ATTEMPTED TO FOLLOW UP WITH THEM STATES HE RETURNED TO WORK 04/16/18--PT WORKS NIGHTS AND LAST NIGHT THAT HE WORKED WAS SATURDAY NIGHT 04/20/18. PT NORMALLY HAS SATURDAY NIGHTS AND SATURDAY NIGHTS OFF.. TONIGHT IS SATURDAY/EARLY SATURDAY PT STATES HE HAS BEEN WEARING AN ELASTIC KNEE BRACE AND TAKES 2 ALEVE BEFORE HE GOES TO WORK, THEN STATES "I CAN BARELY WALK TO THE CAR AFTER WORK" AND IT'S "UNBEARABLE" IF HE DOES NOT WEAR THE BRACE AND TAKE ALEVE. SYMPTOMS ARE NO DIFFERENT JOEL HAS NOT ATTEMPTED TO FOLLOW UP WITH [facility] OR ANYONE ELSE FOR THIS PROBLEM. NO PARESTHESIAS OR MOTOR DEFICITS NO PRIOR PROBLEMS WITH THIS KNEE PCP: [facility] Allergies and Home Medications Allergies Coded Allergies: No Known Drug Allergies (Unverified , 06/28/15) Home Medications Gabapentin 300 Mg Capsule, 300 MG PO HS, (Reported) Patient Home Medication List Home Medication List Reviewed: Yes Review of Systems Constitutional: no symptoms reported Musculoskeletal: see HPI Skin: no symptoms reported Psychiatric/Neurological: No Symptoms Reported Past Kanmuvv-Cadvdk-Tlthxh Hx Patient Social History Alcohol Use: Occasionally Uses Alcohol Beverage of Choice: Beer 2nd Hand Smoke Exposure: No Recent Foreign Travel: No Contact w/Someone Who Travel: No Recent Hopitalizations: No Immunizations Up To Date Tetanus Booster (TDap): Unknown Seasonal Allergies Seasonal Allergies: Yes Past Medical History Surgeries: Yes (RIGHT INGUINAL HERNIA REPAIR; UMBILICAL HERNIA REPAIR; BMT'S) Abdominal, Ear Surgery, Gallbladder Respiratory: Yes (CPAP) Sleep Apnea Currently Using CPAP: Yes Cardiac: No Neurological: Yes Neuropathy Reproductive Disorders: No Sexually Transmitted Disease: No HIV/AIDS: No Gastrointestinal: Yes Abdominal Hernia, Gall Bladder Disease Musculoskeletal: Yes Arthritis, Gout Endocrine: No HEENT: Yes Chronic Ear Infection Loss of Vision: Denies Hearing Impairment: Hard of Hearing Cancer: No Psychosocial: No Integumentary: No Blood Disorders: No Adverse Reaction/Blood Tranf: No Family Medical History No Pertinent Family Hx Physical Exam Vital Signs Capillary Refill : Height, Weight, BMI Height: 5'6.00" Weight: 263lbs. 0.0oz. 119.695423eu; 42.5 BMI Method:Stated General Appearance: WD/WN, no apparent distress, other (MALODOROUS) Legs: right leg normal inspection Knees: right knee bone tenderness, right knee pain, right knee soft tissue tenderness, right knee other (NO SWELLING/EFFUSION OR SKIN DISCOLORATION, NO GROSS LIGAMENT LAXITY BUT EXAM IS LIMITED BY PAIN. ROM IS LIMITED BY PAIN ) Ankles: right ankle normal inspection Neurologic/Tendon: normal sensation, normal motor functions, normal tendon functions Neurologic/Psychiatric: oil scout II-XII nml as tested, no motor/sensory deficits ( HX OF NEUROPATHY), alert, normal mood/affect, oriented x 3 Skin: normal color, warm/dry Procedures/Interventions Splinting and Joint Reduction : Jorge wrap: Yes Ordered: Crutches Progress/Results/Core Measures Results/Orders My Orders Orders - DAISY BILLINGS DO Knee, Right, 3 Views (04/23/18 02:12) Diagnostic Imaging Comments XRAYS RIGHT KNEE--NO ACUTE PROCESS, PENDING RADIOLOGIST REVIEW Reviewed: Reviewed by Me Departure Impression Primary Impression: Right knee pain Disposition: 01 HOME, SELF-CARE Condition: Stable Departure-Patient Inst. Referrals: [facility] (PCP/Family) Primary Care Physician Patient Instructions: Going Up and Down Curbs or Stairs With a Walker or Crutches, How to Use Crutches, Knee Immobilizer (DC), Knee Sprain (DC) Add. Discharge Instructions: DO NOT TAKE ALEVE OR IBUPROFEN WHILE TAKING MEDROL DOSE PACK ICE TO AREA AT 20 MINUTE INTERVALS JORGE WRAP, KNEE IMMOBILIZER AND CRUTCHES AT ALL TIMES ELEVATE LEG MUCH POSSIBLE FOLLOW UP WITH [facility] TOMORROW FOR FURTHER CARE All discharge instructions reviewed with patient and/or family. Voiced understanding. Scripts Methylprednisolone (Medrol) 4 Mg Tab.ds.pk 4 MG PO UD, #1 PKG Prov: DAISY BILLINGS DO 04/23/18 DAISY BILLINGS DO Apr 23, 2018 02:19
[2018-04-23] MEDS ORDERED: METH4TAB PO (02:26)
[2018-04-23 02:41] VITALS: BP 176/89
--- NOTE | 2018-04-23 07:28 | Diagnostic Imaging Report ---
INDICATION: Right knee pain. FINDINGS: Three views. There are no fractures. Thickening surfaces are smooth. Joint spaces are well preserved. Patellofemoral joint appears normal. IMPRESSION: Normal right knee. No significant change has occurred when compared with 04/10/2018. Dictated by: Dictated on workstation # [id number]
== END 2018-04-23 02:41 | disposition home or self-care (01) ==
LOC: EDUNIT# 01:59 → ER 02:01
DX: M25.561 Pain in right knee (principal); Z87.19 Personal history of other diseases of the digestive system; Z98.890 Other specified postprocedural states
CPT/HCPCS: 73562

== ENCOUNTER 2019-03-01 03:13 | Emergency (ER) | payer OTHER ==
[~2019-03-01] VITALS: Ht 167.7 cm; Wt 121.8 kg
[~2019-03-01 03:13] MED LIST changes: +METH4TAB PO
[2019-03-01] MEDS ORDERED: KETOROLAC 30 MG/ML VIAL IM ONE (03:45)
[2019-03-01] MEDS ORDERED: LIDOCAINE 1% INJ 20 ML 20 ML VIAL INJ ONE (03:45)
[2019-03-01] MEDS ORDERED: cefTRIAXone 1,000 MG/2.86 ml vial (IM ONLY) IM ONE (03:45)
--- NOTE | 2019-03-01 03:49 | ED Integumentary General ---
General Stated Complaint: BELIEVES HE HAS CELLULITIS IN ARMS AND ON HIS SIDE Source: patient Exam Limitations: no limitations History of Present Illness Date Seen by Provider: Mar 01, 2019 Time Seen by Provider: 03:32 Initial Comments Patient presents to ER by private conveyance from work with chief complaint that today he started expressing some red rash pain and tenderness under both arms. He says he had this happen about 2 months ago went to his primary care doctor and was told he had cellulitis. They gave him a shot for pain and a shot for antibiotics and within a couple days he said it cleared up. He does not have a weakened immune system or diabetes. No fevers chills nausea vomiting shortness of breath. Allergies and Home Medications Allergies Coded Allergies: No Known Drug Allergies (Unverified , 06/28/15) Home Medications Gabapentin 300 Mg Capsule, 300 MG PO HS, (Reported) Methylprednisolone 4 Mg Tab.ds.pk, 4 MG PO UD Prescribed by: DAISY BILLINGS on 04/23/18 0226 Patient Home Medication List Home Medication List Reviewed: Yes Review of Systems Review of Systems Constitutional: No chills, No diaphoresis EENTM: No ear discharge, No hearing loss, No ear pain Respiratory: No cough, No short of breath Cardiovascular: No chest pain, No edema Gastrointestinal: No abdominal pain, No constipation, No diarrhea, No nausea, N o vomiting Genitourinary: No discharge, No dysuria Past Wbdgxmz-Lwsvrc-Oonlmn Hx Patient Social History Alcohol Use: Occasionally Uses Alcohol Beverage of Choice: Beer Recreational Drug Use: No Smoking Status: Never a Smoker 2nd Hand Smoke Exposure: No Recent Foreign Travel: No Contact w/Someone Who Travel: No Recent Hopitalizations: No Immunizations Up To Date Tetanus Booster (TDap): Unknown Seasonal Allergies Seasonal Allergies: Yes Past Medical History Surgeries: Yes (RIGHT INGUINAL HERNIA REPAIR; UMBILICAL HERNIA REPAIR; BMT'S) Abdominal, Ear Surgery, Gallbladder Respiratory: Yes (CPAP) Sleep Apnea Currently Using CPAP: Yes Cardiac: No Neurological: Yes Neuropathy Reproductive Disorders: No Sexually Transmitted Disease: No HIV/AIDS: No Gastrointestinal: Yes Abdominal Hernia, Gall Bladder Disease Musculoskeletal: Yes Arthritis, Gout Endocrine: No HEENT: Yes Chronic Ear Infection Loss of Vision: Denies Hearing Impairment: Hard of Hearing Cancer: No Psychosocial: No Integumentary: No Blood Disorders: No Adverse Reaction/Blood Tranf: No Family Medical History No Pertinent Family Hx Physical Exam Vital Signs Capillary Refill : General Appearance: mild distress, obese HEENT: PERRL/EOMI, normal ENT inspection, pharynx normal Neck: full range of motion, normal inspection Cardiovascular: normal peripheral pulses, regular rate, rhythm Respiratory: lungs clear, normal breath sounds, no respiratory distress, no accessory muscle use Neurologic/Psychiatric: alert, normal mood/affect, oriented x 3 Skin: rash (tender, erythematous, raised rash consistent with an indurated cellulitis under her bilateral armpits and folds of skin inferior to that.) Progress/Results/Core Measures Results/Orders My Orders Orders - MAURA NAVARRETE Ketorolac Injection (Toradol Injection) (03/01/19 03:45) Ceftriaxone For Im Use (Rocephin For Im (03/01/19 03:45) Lidocaine 1% Inj 20 Ml (Xylocaine 1% Inj (03/01/19 03:45) Progress Progress Note : Time: 03:46 Progress Note Suspect cellulitis. He has not had an aseptic vital signs. Plan to give him Rocephin, Toradol and put him out on Keflex with follow-up in one to 2 weeks with primary care. Departure Impression Primary Impression: Cellulitis Qualified Codes: L03.313 - Cellulitis of chest wall Disposition: 01 HOME, SELF-CARE Condition: Stable Departure-Patient Inst. Decision time for Depature: 03:[address]: [facility] [place] Primary Care Physician Patient Instructions: Cellulitis (Skin Infection), Adult (DC) Add. Discharge Instructions: Keep the skin clean and dry. Anywhere the skin is not broken open you could put a light dusting of body powder. Keep the skin open to air as much as possible and avoid sweating. Tylenol 650 mg every 8 hours in addition to ibuprofen 800 mg every 8 hours as necessary for pain. Hydrocodone one tablet every 6 hours as needed for breakthrough pain it keeps you from being functional. Keflex one capsule 4 times a day. If not seeing improvement by day 3 or 4 or your symptoms or worsening in any follow-up sooner. Otherwise plan to follow up with your primary care doctor in 1-2 weeks. Scripts Hydrocodone Bit/Acetaminophen (Hydrocodone/Acetaminophen 5/325mg Tablet) 1 Tab Tab 1 EACH PO Q4-6HR PRN for PAIN-MODERATE MDD 10 for 3 Days, #8 TAB 0 Refills Prov: MAURA NAVARRETE 03/01/19 Cephalexin (Keflex) 500 Mg Capsule 500 MG PO QID for 7 Days, #28 CAP 0 Refills Prov: MAURA NAVARRETE 03/01/19 Work/School Note: Work Release Form Date Seen in the Emergency Department: Mar 01, 2019 Return to Work: Mar 04, 2019 Restrictions: No Restrictions MAURA NAVARRETE Mar 01, 2019 03:48
[2019-03-01] MEDS ORDERED: CEPH-507 PO (03:50)
[2019-03-01] MEDS ORDERED: ACHD5005 PO (03:50)
[2019-03-01 04:06] VITALS: BP 102/53
== END 2019-03-01 04:06 | disposition home or self-care (01) ==
LOC: EDUNIT# 03:13 → ER 03:15
DX: L03.111 Cellulitis of right axilla (principal); L03.112 Cellulitis of left axilla; G47.30 Sleep apnea, unspecified; G62.9 Polyneuropathy, unspecified; M10.9 Gout, unspecified; Z99.89 Dependence on other enabling machines and devices; Z79.52 Long term (current) use of systemic steroids
CPT/HCPCS: 99284

== ENCOUNTER 2019-07-21 01:17 | Emergency (ER) | payer SELFPAY ==
[~2019-07-21] VITALS: Ht 180 cm; Wt 100.0 kg
[~2019-07-21 01:17] MED LIST changes: +CEPH-507 PO
[2019-07-21] MEDS ORDERED: LACTATED RINGERS 1,000 ML IV ONE (01:31)
[2019-07-21 01:40] LABS: BASOPHILS % (AUTO) 0 % (0-10); EOSINOPHILS # (AUTO) 0.1 10^3/uL (0.0-0.3); EOSINOPHILS % (AUTO) 1 % (0-10); HEMATOCRIT 46 % (40-54); LYMPHOCYTES # (AUTO) 1.8 X 10^3 (1.0-4.0); LYMPHOCYTES % (AUTO) 22 % (12-44); MEAN CORPUSCULAR HEMOGLOBIN 32 PG (25-34); MEAN CORPUSCULAR HGB CONC 35 G/DL (32-36); MEAN CORPUSCULAR VOLUME 92 FL (80-99); MEAN PLATELET VOLUME 11.1 FL (7.4-10.4); MONOCYTES # (AUTO) 0.6 X 10^3 (0.0-1.0); MONOCYTES % (AUTO) 7 % (0-12); NEUTROPHILS % (AUTO) 70 % (42-75); PLATELET COUNT 255 10^3/uL (130-400); WHITE BLOOD COUNT 8.5 10^3/uL (4.3-11.0)
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
[2019-07-21 01:54] LABS: ALANINE AMINOTRANSFERASE 50 U/L (0-55); ALBUMIN 4.1 GM/DL (3.2-4.5); ALKALINE PHOSPHATASE 76 U/L (40-136); BUN/CREATININE RATIO 11; CALCIUM 8.8 MG/DL (8.5-10.1); CARBON DIOXIDE 25 MMOL/L (21-32); CHLORIDE 106 MMOL/L (98-107); CREATININE SERUM 0.82 MG/DL (0.60-1.30); GFR ESTIMATED > 60; GLUCOSE 121 MG/DL (70-105); POTASSIUM 3.7 MMOL/L (3.6-5.0); SODIUM 143 MMOL/L (135-145)
--- NOTE | 2019-07-21 02:04 | ED Psychosocial ---
General Chief Complaint: Substance Abuse Stated Complaint: ETOH Nursing Triage Note: Pt to [facility] via [facility] [place] side [place] tonight. Pt states he's drank alot of whiskey tonight after an argument with his . Pt states his sister was giving him a ride and then they got into a verbal argument when he told her to "let him out". Pt is loud on arrival, alert and oriented to place. Pt threw his phone across room when starting talking to him. Source: patient, police, EMS Exam Limitations: no limitations History of Present Illness Date Seen by Provider: Jul 21, 2019 Time Seen by Provider: 01:18 Initial Comments This 48-year-old man is brought to the emergency room via EMS after being found lying on the side of the road at [address] and [place]. He is obviously intoxicated. He admits to drinking a significant amount of bourbon tonight. He apparently was in an argument with his . He was then a passenger in a vehicle driven by his sister. They began to argue. He apparently told his sister to extractor puller and let him out with which she complied. He then was walking on the side of the road and fell. He has a minor abrasion on his knee but denies any other injury. He is obviously angry and emotionally hurt. At one point he threw his cell phone across the room into the door. He is intermittently belligerent. At one point he stated it would've been better if a [place] truck struck him. However, after further discussion, he denies any suicidal ideation or intent. Allergies and Home Medications Allergies Coded Allergies: No Known Drug Allergies (Unverified , 06/28/15) Home Medications Cephalexin 500 Mg Capsule, 500 MG PO QID Prescribed by: MAURA NAVARRETE on 03/01/19 0350 Gabapentin 300 Mg Capsule, 300 MG PO HS, (Reported) Hydrocodone Bit/Acetaminophen 1 Tab Tab, 1 EACH PO Q4-6HR PRN for PAIN-MODERATE Prescribed by: MAURA NAVARRETE on 03/01/19 0350 Methylprednisolone 4 Mg Tab.ds.pk, 4 MG PO UD Prescribed by: DAISY BILLINGS on 04/23/18 0226 Patient Home Medication List Home Medication List Reviewed: Yes Review of Systems Constitutional: see HPI EENTM: no symptoms reported Respiratory: no symptoms reported Cardiovascular: no symptoms reported Gastrointestinal: see HPI Genitourinary: no symptoms reported Musculoskeletal: no symptoms reported Skin: see HPI Psychiatric/Neurological: See HPI Past Mjqpbde-Nqdggg-Woqigs Hx Past Med/Social Hx: Reviewed and Corrections made Patient Social History Alcohol Use: Regular Use Number of Drinks Today: 8 Alcohol Beverage of Choice: Beer, Whiskey Recreational Drug Use: Yes Drug of Choice: marijuana Smoking Status: Never a Smoker 2nd Hand Smoke Exposure: No Recent Foreign Travel: No Contact w/Someone Who Travel: No Recent Infectious Disease Expo: No Recent Hopitalizations: No Physical Abuse: No Sexual Abuse: No Mistreated: No Fear: No Immunizations Up To Date Tetanus Booster (TDap): Unknown Seasonal Allergies Seasonal Allergies: Yes Past Medical History Surgeries: Yes (RIGHT INGUINAL HERNIA REPAIR; UMBILICAL HERNIA REPAIR; BMT'S) Abdominal, Ear Surgery, Gallbladder Respiratory: Yes (CPAP) Sleep Apnea Currently Using CPAP: Yes Cardiac: Yes Hypertension Neurological: Yes Neuropathy Reproductive Disorders: No Sexually Transmitted Disease: No HIV/AIDS: No Gastrointestinal: Yes Abdominal Hernia, Gall Bladder Disease Musculoskeletal: Yes Arthritis, Gout Endocrine: No HEENT: Yes Chronic Ear Infection Loss of Vision: Denies Hearing Impairment: Hard of Hearing Cancer: No Psychosocial: No Integumentary: No Blood Disorders: No Adverse Reaction/Blood Tranf: No Family Medical History No Pertinent Family Hx Physical Exam Vital Signs - First Documented 07/21/19 01:17 Temp 36.3 Pulse 59 Resp 20 B/P (MAP) 131/95 (107) Pulse Ox 99 O2 Delivery Room Air Capillary Refill : Less Than 3 Seconds Height, Weight, BMI Height: 5'6.00" Weight: 275lbs. 0.0oz. 124.096838ux; 30.00 BMI Method:Stated General Appearance: WD/WN, no apparent distress HEENT: normal ENT inspection, pharynx normal Neck: normal inspection Respiratory: lungs clear, normal breath sounds, no respiratory distress, no accessory muscle use Cardiovascular: regular rate, rhythm, no edema, no murmur Gastrointestinal: normal bowel sounds, non tender, soft Extremities: no pedal edema, other (minor abrasion on the right knee) Neurologic/Psychiatric: insurance underwriter II-XII nml as tested, no motor/sensory deficits, alert, normal mood/affect, other (intoxicated) Appearance/Memory: disheveled Behavior/Eye Contact: cooperative, good eye contact Skin: normal color, warm/dry Progress/Results/Core Measures Results/Orders Lab Results Laboratory Tests Test 07/21/19 01:25 07/21/19 02:35 Range/Units White Blood Count 8.5 4.3-11.0 10^3/uL Red Blood Count 5.03 4.35-5.85 10^6/uL Hemoglobin 16.0 13.3-17.7 G/DL Hematocrit 46 40-54 % Mean Corpuscular Volume 92 80-99 FL Mean Corpuscular Hemoglobin 32 25-34 PG Mean Corpuscular Hemoglobin Concent 35 32-36 G/DL Red Cell Distribution Width 13.0 10.0-14.5 % Platelet Count 255 130-400 10^3/uL Mean Platelet Volume 11.1 H 7.4-10.4 FL Neutrophils (%) (Auto) 70 42-75 % Lymphocytes (%) (Auto) 22 12-44 % Monocytes (%) (Auto) 7 0-12 % Eosinophils (%) (Auto) 1 0-10 % Basophils (%) (Auto) 0 0-10 % Neutrophils # (Auto) 6.0 1.8-7.8 X 10^3 Lymphocytes # (Auto) 1.8 1.0-4.0 X 10^3 Monocytes # (Auto) 0.6 0.0-1.0 X 10^3 Eosinophils # (Auto) 0.1 0.0-0.3 10^3/uL Basophils # (Auto) 0.0 0.0-0.1 10^3/uL Sodium Level 143 135-145 MMOL/L Potassium Level 3.7 3.6-5.0 MMOL/L Chloride Level 106 98-107 MMOL/L Carbon Dioxide Level 25 21-32 MMOL/L Anion Gap 12 5-14 MMOL/L Blood Urea Nitrogen 9 7-18 MG/DL Creatinine 0.82 0.60-1.30 MG/DL Estimat Glomerular Filtration Rate > 60 BUN/Creatinine Ratio 11 Glucose Level 121 H 70-105 MG/DL Calcium Level 8.8 8.5-10.1 MG/DL Corrected Calcium 8.7 8.5-10.1 MG/DL Total Bilirubin 1.0 0.1-1.0 MG/DL Aspartate Amino Transf (AST/SGOT) 30 5-34 U/L Alanine Aminotransferase (ALT/SGPT) 50 0-55 U/L Alkaline Phosphatase 76 40-136 U/L Total Protein 7.0 6.4-8.2 GM/DL Albumin 4.1 3.2-4.5 GM/DL Serum Alcohol 173 H <10 MG/DL Urine Color YELLOW Urine Clarity CLEAR Urine pH 5.0 5-9 Urine Specific Perry 1.010 L 1.016-1.022 Urine Protein NEGATIVE NEGATIVE Urine Glucose (UA) NEGATIVE NEGATIVE Urine Ketones NEGATIVE NEGATIVE Urine Nitrite NEGATIVE NEGATIVE Urine Bilirubin NEGATIVE NEGATIVE Urine Urobilinogen 0.2 < = 1.0 MG/DL Urine Leukocyte Esterase NEGATIVE NEGATIVE Urine RBC (Auto) NEGATIVE NEGATIVE Urine RBC NONE /HPF Urine WBC NONE /HPF Urine Squamous Epithelial Cells NONE /HPF Urine Crystals NONE /LPF Urine Bacteria TRACE /HPF Urine Casts NONE /LPF Urine Mucus NEGATIVE /LPF Urine Culture Indicated NO Urine Opiates Screen NEGATIVE NEGATIVE Urine Oxycodone Screen NEGATIVE NEGATIVE Urine Methadone Screen NEGATIVE NEGATIVE Urine Propoxyphene Screen NEGATIVE NEGATIVE Urine Barbiturates Screen NEGATIVE NEGATIVE Ur Tricyclic Antidepressants Screen NEGATIVE NEGATIVE Urine Phencyclidine Screen NEGATIVE NEGATIVE Urine Amphetamines Screen NEGATIVE NEGATIVE Urine Methamphetamines Screen NEGATIVE NEGATIVE Urine Benzodiazepines Screen NEGATIVE NEGATIVE Urine Cocaine Screen NEGATIVE NEGATIVE Urine Cannabinoids Screen POSITIVE H NEGATIVE My Orders Orders - VICTORINO SANTAMARIA MD Alcohol (07/21/19 01:31) Cbc With Automated Diff (07/21/19 01:31) Comprehensive Metabolic Panel (07/21/19 01:31) Drug Screen Stat (Urine) (07/21/19 01:31) Ua Culture If Indicated (07/21/19 01:31) Ed Iv/Invasive Line Start (07/21/19 01:31) Lactated Ringers (Lr 1000 Ml Iv Solution (07/21/19 01:31) Medications Given in ED Current Medications Medications Dose Ordered Sig/Hardeep Route Start Time Stop Time Status Last Admin Dose Admin Lactated Ringer's 1,000 ml @ 0 mls/hr Q0M ONCE IV 07/21/19 01:31 07/21/19 01:33 DC 07/21/19 01:36 0 MLS/HR Vital Signs/I&O 07/21/19 07/21/19 01:17 02:41 Temp 36.3 36.3 Pulse 59 59 Resp 20 20 B/P (MAP) 131/95 (107) 104/74 (107) Pulse Ox 99 99 O2 Delivery Room Air Blood Pressure Mean: 107 Progress Progress Note #1: Time: 02:03 Progress Note Patient was seen and examined. A liter of IV fluid has been ordered. [facility] was called to the ER due to patient's aggressive and belligerent behavior. Labs are pending. Progress Note #2: Progress Note Workup was unremarkable and patient quickly sobered with a liter of IV fluids. He was dismissed into the care of a friend. Departure Impression Primary Impression: Acute alcoholic intoxication Qualified Codes: F10.929 - Alcohol use, unspecified with intoxication, unspecified Disposition: 01 HOME, SELF-CARE Condition: Improved Departure-Patient Inst. Decision time for Depature: 02:30 Referrals: [facility] [place] (PCP/Family) Primary Care Physician Patient Instructions: ALCOHOL AND SUBSTANCE ABUSE Add. Discharge Instructions: Do not drink alcohol in excess. If you have any thoughts of harming herself or others, please call 911 or the [facility] save line at [phone]. Return to the ER if you have any worsening health issues. All discharge instructions reviewed with patient and/or family. Voiced understanding. VICTORINO SANTAMARIA MD Jul 21, 2019 02:04
[2019-07-21 02:41] VITALS: BP 104/74
[2019-07-21 02:44] LABS: BILIRUBIN,URINE NEGATIVE (NEGATIVE); CLARITY,URINE CLEAR; COLOR,URINE YELLOW; GLUCOSE, URINE (UA) NEGATIVE (NEGATIVE); KETONES,URINE NEGATIVE (NEGATIVE); LEUKOCYTE ESTERASE ,URINE NEGATIVE (NEGATIVE); NITRITE,URINE NEGATIVE (NEGATIVE); PROTEIN,URINE NEGATIVE (NEGATIVE)
[2019-07-21 02:56] LABS: AMPHETAMINE SCREEN, URINE NEGATIVE (NEGATIVE); BACTERIA,URINE TRACE /HPF; BARBITURATE SCREEN URINE NEGATIVE (NEGATIVE); BENZODIAZEPINES SCREEN URINE NEGATIVE (NEGATIVE); CANNABINOID SCREEN, URINE POSITIVE (NEGATIVE); COCAINE SCREEN URINE NEGATIVE (NEGATIVE); METHADONE STAT NEGATIVE (NEGATIVE); METHAMPHETAMINE SCREEN URINE S NEGATIVE (NEGATIVE); OPIATE SCREEN URINE NEGATIVE (NEGATIVE); OXYCODONE STAT NEGATIVE (NEGATIVE); PROPOXYPHENE STAT NEGATIVE (NEGATIVE); TRICYCLIC ANTIDEPRESSANTS SCRE NEGATIVE (NEGATIVE)
== END 2019-07-21 02:42 | disposition home or self-care (01) ==
LOC: EDUNIT# 01:17 → ER 01:18
DX: F10.129 Alcohol abuse with intoxication, unspecified (principal); I10 Essential (primary) hypertension; G47.30 Sleep apnea, unspecified; G62.9 Polyneuropathy, unspecified; Z99.89 Dependence on other enabling machines and devices; Y90.6 Blood alcohol level of 120-199 mg/100 ml
CPT/HCPCS: 36415; 80053; 80306; 80320; 81000; 85025